=== PATIENT | female | born 1995 | race Caucasian/White ===

== ENCOUNTER 2018-01-15 16:21 | Emergency (ER) | payer BC ==
[~2018-01-15] VITALS: Ht 162.6 cm; Wt 97.5 kg
[2018-01-15 17:38] LABS: BASOPHILS % (AUTO) 0 % (0-10); EOSINOPHILS # (AUTO) 0.2 10^3/uL (0.0-0.3); EOSINOPHILS % (AUTO) 2 % (0-10); HEMATOCRIT 38 % (35-52); HEMOGLOBIN 12.8 G/DL (11.5-16.0); LYMPHOCYTES # (AUTO) 2.3 X 10^3 (1.0-4.0); LYMPHOCYTES % (AUTO) 24 % (12-44); MEAN CORPUSCULAR HEMOGLOBIN 30 PG (25-34); MEAN CORPUSCULAR HGB CONC 34 G/DL (32-36); MEAN CORPUSCULAR VOLUME 88 FL (80-99); MEAN PLATELET VOLUME 9.8 FL (7.4-10.4); MONOCYTES # (AUTO) 0.6 X 10^3 (0.0-1.0); MONOCYTES % (AUTO) 6 % (0-12); NEUTROPHILS # (AUTO) 6.5 X 10^3 (1.8-7.8); NEUTROPHILS % (AUTO) 68 % (42-75); PLATELET COUNT 264 10^3/uL (130-400); RED BLOOD COUNT 4.34 10^6/uL (4.35-5.85); RED CELL DISTRIBUTION WIDTH 12.4 % (10.0-14.5); WHITE BLOOD COUNT 9.5 10^3/uL (4.3-11.0)
[2018-01-15 17:57] LABS: ALANINE AMINOTRANSFERASE 20 U/L (0-55); ALBUMIN 4.3 GM/DL (3.2-4.5); ALKALINE PHOSPHATASE 72 U/L (40-136); BILIRUBIN,TOTAL 0.3 MG/DL (0.1-1.0); BUN/CREATININE RATIO 15; CALCIUM 9.2 MG/DL (8.5-10.1); CARBON DIOXIDE 20 MMOL/L (21-32); CHLORIDE 109 MMOL/L (98-107); CREATININE SERUM 0.65 MG/DL (0.60-1.30); GFR ESTIMATED > 60; GLUCOSE 78 MG/DL (70-105); POTASSIUM 3.6 MMOL/L (3.6-5.0); SODIUM 141 MMOL/L (135-145); TOTAL PROTEIN 7.3 GM/DL (6.4-8.2)
--- NOTE | 2018-01-15 18:09 | ED GU-Female ---
General Chief Complaint: -Female Stated Complaint: ABD PAIN/VAG BLEEDING SINCE 12/20 Nursing Triage Note: ARRIVED VIA AMB TO ROOM 07. PT CRYING ET NERVOUS ET STATES SHE DOES NOT KNOW WHY [facility] SENT HER HERE. PT STATES SHE HAS HAD BLEEDING AND PAIN SINCE Dec. SEEN HER OBGYN IN [place] WHO DID "NOTHING FOR "HER. WENT TO [facility] TODAY HAD A POSITIVE PREG TEST. ET ACCORDING TO THEIR ULTRASOUND SHE HAS A EPTOPIC . Nursing Sepsis Screen: No Definite Risk Source: patient, old records Exam Limitations: no limitations History of Present Illness Date Seen by Provider: Jan 15, 2018 Time Seen by Provider: 16:35 Initial Comments This 22-year-old young lady presents to the emergency room with vaginal bleeding and pelvic pain since December 20. She has been on Clomid for treatment of infertility. She presented to her registered dietitian, Dr. Gonzalez, in [place] on December 21. No workup yet was pursued at that time. Patient presented to the [facility] clinic today as symptoms were worsening. An outpatient ultrasound was pursued which demonstrated a pelvic mass with no contents within the uterus. Findings were concerning for an ectopic . Patient reports a urine test done in the clinic was positive. She has had no fevers. She has had no major symptoms of anemia except she occasionally feels like she needs to catch her breath. Allergies and Home Medications Allergies Coded Allergies: No Known Drug Allergies (Unverified , 01/15/18) Home Medications Hydrocodone Bit/Acetaminophen 1 Tab Tab, 1-2 TAB PO Q6H PRN for PAIN-MODERATE TO SEVERE Prescribed by: ANGELINA SIMS on 01/15/182020 Ondansetron 4 Mg Tab.rapdis, 4 MG SL Q4H PRN for NAUSEA/VOMITING-1ST LINE Prescribed by: ANGELINA SIMS on 01/15/182020 Patient Home Medication List Home Medication List Reviewed: Yes Constitutional: no symptoms reported EENTM: no symptoms reported Respiratory: see HPI Cardiovascular: no symptoms reported Gastrointestinal: no symptoms reported Genitourinary: see HPI : Yes LMP: Dec 20, 2017 Musculoskeletal: no symptoms reported Skin: no symptoms reported Psychiatric/Neurological: No Symptoms Reported Endocrine: No Symptoms Reported Hematologic/Lymphatic: No Symptoms Reported Past Slxyaeb-Lrukvb-Kagxwp Hx Patient Social History Alcohol Use: Denies Use Recreational Drug Use: No Smoking Status: Never a Smoker Recent Foreign Travel: No Contact w/Someone Who Travel: No Recent Infectious Disease Expo: No Recent Hopitalizations: No Surgeries History of Surgeries: Yes (D&C, DENTAL) Respiratory History of Respiratory Disorde: No Cardiovascular History of Cardiac Disorders: No Neurological History of Neurological Disord: No Reproductive System : Yes Last Menstrual Period: Dec 14, 2017 Genitourinary History of Genitourinary Disor: No Gastrointestinal History of Gastrointestinal Di: No Musculoskeletal History of Musculoskeletal Dis: No Endocrine History of Endocrine Disorders: No HEENT History of HEENT Disorders: No Cancer History of Cancer: No Psychosocial History of Psychiatric Problem: No Physical Exam Vital Signs Vital Signs - First Documented 01/15/18 01/15/18 16:25 21:28 Temp 98.1 Pulse 71 Resp 18 B/P (MAP) 122/71 (88) Pulse Ox 100 Capillary Refill : Less Than 3 Seconds General Appearance: WD/WN, mild distress HEENT: normal ENT inspection Neck: normal inspection Cardiovascular: regular rate, rhythm, no edema, no murmur Respiratory: lungs clear, normal breath sounds, no respiratory distress, no accessory muscle use Gastrointestinal: normal bowel sounds, soft, tenderness (suprapubic) Extremities: normal inspection, no pedal edema Neurologic/Psychiatric: sash finisher II-XII nml as tested, no motor/sensory deficits, alert, normal mood/affect, oriented x 3 Skin: normal color, warm/dry Progress/Results/Core Measures Suspected Sepsis Recent Fever Within 48 Hours: No Infection Criteria Present: None New/Unexplained Altered Menta: No Sepsis Screen: No Definite Risk Sepsis Diagnosis: SIRS Temperature:98.1 Pulse: 71 Respiratory Rate: 18 Laboratory Tests 01/15/18 17:31: White Blood Count 9.5 Blood Pressure 122 /71 Mean: 88 Laboratory Tests 01/15/18 17:31: Creatinine 0.65, Platelet Count 264, Total Bilirubin 0.3 Results/Orders Lab Results Laboratory Tests Test 01/15/18 17:31 Range/Units White Blood Count 9.5 4.3-11.0 10^3/uL Red Blood Count 4.34 L 4.35-5.85 10^6/uL Hemoglobin 12.8 11.5-16.0 G/DL Hematocrit 38 35-52 % Mean Corpuscular Volume 88 80-99 FL Mean Corpuscular Hemoglobin 30 25-34 PG Mean Corpuscular Hemoglobin Concent 34 32-36 G/DL Red Cell Distribution Width 12.4 10.0-14.5 % Platelet Count 264 130-400 10^3/uL Mean Platelet Volume 9.8 7.4-10.4 FL Neutrophils (%) (Auto) 68 42-75 % Lymphocytes (%) (Auto) 24 12-44 % Monocytes (%) (Auto) 6 0-12 % Eosinophils (%) (Auto) 2 0-10 % Basophils (%) (Auto) 0 0-10 % Neutrophils # (Auto) 6.5 1.8-7.8 X 10^3 Lymphocytes # (Auto) 2.3 1.0-4.0 X 10^3 Monocytes # (Auto) 0.6 0.0-1.0 X 10^3 Eosinophils # (Auto) 0.2 0.0-0.3 10^3/uL Basophils # (Auto) 0.0 0.0-0.1 10^3/uL Sodium Level 141 135-145 MMOL/L Potassium Level 3.6 3.6-5.0 MMOL/L Chloride Level 109 H 98-107 MMOL/L Carbon Dioxide Level 20 L 21-32 MMOL/L Anion Gap 12 5-14 MMOL/L Blood Urea Nitrogen 10 7-18 MG/DL Creatinine 0.65 0.60-1.30 MG/DL Estimat Glomerular Filtration Rate > 60 BUN/Creatinine Ratio 15 Glucose Level 78 70-105 MG/DL Calcium Level 9.2 8.5-10.1 MG/DL Total Bilirubin 0.3 0.1-1.0 MG/DL Aspartate Amino Transf (AST/SGOT) 20 5-34 U/L Alanine Aminotransferase (ALT/SGPT) 20 0-55 U/L Alkaline Phosphatase 72 40-136 U/L Total Protein 7.3 6.4-8.2 GM/DL Albumin 4.3 3.2-4.5 GM/DL Human Chorionic Gonadotropin, Quant 2418 H <5 MIU/ML My Orders Orders - ANGELINA MUÑOZ MD Cbc With Automated Diff (01/15/18 16:42) Comprehensive Metabolic Panel (01/15/18 16:42) Hcg,Quantitative (01/15/18 16:42) Abo Rh Type (01/15/18 16:42) Rx-Hydrocodone/Apap 5-325 Mg (Rx-Vicodin (01/15/18 20:15) Rx-Ondansetron Po (Rx-Zofran Po) (01/15/18 20:13) Medications Given in ED Current Medications Medications Dose Ordered Sig/Dutch Route Start Time Stop Time Status Last Admin Dose Admin Acetaminophen/ Hydrocodone Bitart 1 ea Q4H PRN PO 01/15/18 20:15 01/15/18 21:30 DC 01/15/18 20:51 1 EA Methotrexate Sodium 100 mg ONCE ONCE IM 01/15/18 20:30 01/15/18 20:31 DC 01/15/18 20:39 100 MG Vital Signs/I&O Vital Sign - Last 12Hours 01/15/18 21:28 Temp 98.1 Pulse 71 Resp 18 B/P (MAP) 113/62 (88) Pulse Ox 100 Capillary Refill : Less Than 3 Seconds Blood Pressure Mean: 88 Progress Note : Progress Note Patient had a low hCG level of 2418. Ultrasound report was reviewed. Patient declined treatment with pain medications. Case was reviewed with Dr. Floyd who believes patient would be a reasonable candidate for methotrexate therapy. Since patient struggles with infertility, it would be best to avoid surgery that may damage are disrupt the uterus, fallopian tubes, or ovaries. Patient agrees with methotrexate therapy and wishes to avoid surgery. Methot[facility]ate was obtained from the [facility] and administered by IM route. There was a prolonged length of stay due to difficulty with procuring the methotrexate from the cancer center. Follow-up was arranged with Dr. Floyd as she wishes to seek further gynecologic care in [place]. Dr. Cuellar would like to see the patient in follow-up on Monday, January 17. Diagnostic Imaging Diagonstic Imaging: Ultrasound Plain Films/CT/US/NM/MRI: pelvis Comments Ultrasound was discussed with Dr. Saldaña and report reviewed. See report below: NAME: ABAD VILLARREAL MED REC#: [id number] PT STATUS: REG CLI : 1995 PHYSICIAN: OTHER, UNLISTED ADMIT DATE: 01/15/18/RAD Draft Date of Exam:01/15/18 US OB<14 WKS SNGLE W/TRANSVAG EXAMINATION: OB ultrasound. INDICATION: Vaginal bleeding, pelvic pain, positive test. FINDINGS: There are no prior studies available for comparison. The uterus is nongravid and not enlarged measuring 7.9 x 3.9 x 4.1 cm. The endometrial lining is minimally thickened measuring 7 mm (normal 5 mm or less). There is no focal mass involving the uterus to suggest a fibroid. On the transaxial images, there is a sizable 7 x 4 cm echogenic area along the posterior aspect of the uterus. This abnormal density is surrounded by a small amount of free fluid. This finding is of uncertain etiology; however, with an empty uterus and a positive test, this mass should be considered secondary to an ectopic until proven otherwise. Correlation with the patient's beta-hCG levels would be recommended. Neither ovary is identified. IMPRESSION: 1. There is no evidence for a gestational sac within the uterus. There does appear to be a sizable 4x 7 cm echogenic density posterior to the uterus. This finding could be related to an ectopic . Recommendations as above. 2. These results will be called to LORNE Lipscomb. CRITICAL FINDINGS Dictated on workstation # [id number] Dict: 01/15/18 1547 Trans: 01/15/18 1802 [facility] [id number] Interpreted by: CLAUDETTE SALDAÑA MD Reviewed: Discussed w/Radiologist Departure Impression Impression: Primary Impression: Ectopic Qualified Codes: O00.90 - Unspecified ectopic without intrauterine Additional Impressions: Pelvic pain Vaginal bleeding Disposition: 01 HOME, SELF-CARE Condition: Improved Departure-Patient Inst. Decision time for Depature: 18:52 Referrals: JOYA STORY MD (PCP/Family) Primary Care Physician CATRACHITA FLOYD DO Patient Instructions: Ectopic Add. Discharge Instructions: Contacted Dr. Floyd's office in the morning for follow-up instructions. You may take hydrocodone as prescribed for pain. You may also use Zofran ( ondansetron) as prescribed for nausea. Start methotrexate as prescribed. This medication may cause increased pain and bleeding temporarily while it takes effect. Return to the emergency room if symptoms become too severe. All discharge instructions reviewed with patient and/or family. Voiced understanding. Scripts Ondansetron (Zofran Odt) 4 Mg Tab.rapdis 4 MG SL Q4H Y for NAUSEA/VOMITING-1ST LINE, #10 TAB Prov: BRUEGGEMANN,ANGELINA T MD 01/15/18 Hydrocodone Bit/Acetaminophen (Hydrocodone/Acetaminophen 5/325mg Tablet) 1 Tab Tab 1-2 TAB PO Q6H Y for PAIN-MODERATE TO SEVERE, #30 TAB Prov: ANGELINA MUÑOZ MD 01/15/18 Work/School Note: Work Release Form Date Seen in the Emergency Department: Jan 15, 2018 Return to Work: Jan 18, 2018 Restrictions: No Restrictions Copy Copies To 1: CATRACHITA FLOYD JOSHUA T MD Jan 15, 2018 18:09
[2018-01-15] MEDS ORDERED: RX-ONDANSETRON 4 MG ODT (ZOFRAN) PPK #4 SL STA (20:13)
[2018-01-15] MEDS ORDERED: RX-HYDROCODONE/APAP 5/325 MG #4 TAB PK PO PRN (20:15)
[2018-01-15] MEDS ORDERED: ACHD5005 PO (20:21)
[2018-01-15] MEDS ORDERED: ONDA4TAB8 SL (20:21)
[2018-01-15] MEDS ORDERED: METHOTREXATE 50 MG/2 ML PF IM ONE (20:30)
[2018-01-15 21:28] VITALS: BP 113/62
== END 2018-01-15 21:30 | disposition home or self-care (01) ==
LOC: EDUNIT# 16:21 → ER 16:22
DX: O00.90 Unspecified ectopic pregnancy without intrauterine pregnancy (principal); Z3A.00 Weeks of gestation of pregnancy not specified
CPT/HCPCS: 36415; 80053; 84702; 85025; 86900; 86901; 96372

== ENCOUNTER → 2018-01-15 | Outpatient (CLI) | payer BC ==
[~2018-01-15] MED LIST: ACHD5005 PO; ONDA4TAB8 SL
--- NOTE | 2018-01-15 18:03 | Diagnostic Imaging Report ---
EXAMINATION: OB ultrasound. INDICATION: Vaginal bleeding, pelvic pain, positive test. FINDINGS: There are no prior studies available for comparison. The uterus is nongravid and not enlarged measuring 7.9 x 3.9 x 4.1 cm. The endometrial lining is minimally thickened measuring 7 mm (normal 5 mm or less). There is no focal mass involving the uterus to suggest a fibroid. On the transaxial images, there is a sizable 7 x 4 cm echogenic area along the posterior aspect of the uterus. This abnormal density is surrounded by a small amount of free fluid. This finding is of uncertain etiology; however, with an empty uterus and a positive test, this mass should be considered secondary to an ectopic until proven otherwise. Correlation with the patient's beta-hCG levels would be recommended. Neither ovary is identified. IMPRESSION: 1. There is no evidence for a gestational sac within the uterus. There does appear to be a sizable 4x 7 cm echogenic density posterior to the uterus. This finding should be considered secondary to an ectopic until proven otherwise. Recommendations as above. 2. These results were called to LORNE Vivar at the time of this dictation. CRITICAL FINDINGS Dictated by: Dictated on workstation # [id number]
== END ==
LOC: RAD 14:56
PROVIDERS: ATTEND Nurse Practitioner Family
DX: O46.91 Antepartum hemorrhage, unspecified, first trimester (principal); O99.89 Other specified diseases and conditions complicating pregnancy, childbirth and the puerperium; Z3A.01 Less than 8 weeks gestation of pregnancy
CPT/HCPCS: 76801; 76817

== ENCOUNTER → 2018-12-09 | Outpatient (CLI) | payer OTHER | LOC: LAB 09:50 | PROVIDERS: ATTEND Obstetrics & Gynecology | DX: N97.0 Female infertility associated with anovulation (principal) | CPT/HCPCS: 36415; 84144 ==

== ENCOUNTER → 2019-01-03 | Outpatient (CLI) | payer OTHER | LOC: LAB 16:24 | PROVIDERS: ATTEND Obstetrics & Gynecology | DX: N97.0 Female infertility associated with anovulation (principal) | CPT/HCPCS: 36415; 82670; 84144 ==

== ENCOUNTER → 2019-01-08 | Outpatient (CLI) | payer OTHER | LOC: LAB 16:51 | PROVIDERS: ATTEND Obstetrics & Gynecology | DX: N97.0 Female infertility associated with anovulation (principal) | CPT/HCPCS: 36415; 82670; 84144 ==

== ENCOUNTER → 2019-01-29 | Outpatient (CLI) | payer OTHER | LOC: LAB 17:12 | PROVIDERS: ATTEND Obstetrics & Gynecology | DX: N97.0 Female infertility associated with anovulation (principal) | CPT/HCPCS: 36415; 82670 ==

== ENCOUNTER → 2019-02-03 | Outpatient (CLI) | payer OTHER | LOC: LAB 10:09 | PROVIDERS: ATTEND Obstetrics & Gynecology | DX: N97.0 Female infertility associated with anovulation (principal) | CPT/HCPCS: 36415; 84144 ==

== ENCOUNTER 2019-03-04 09:05 | Emergency (ER) | payer OTHER ==
[~2019-03-04] VITALS: Ht 162.6 cm; Wt 95.7 kg
--- OUTSIDE RECORDS SUMMARY | 2019-03-04 09:10 | XMS REPORT ---
Author Author ABENA DUTTON Organization [facility] IN [facility] Address [address] [place] [address] Care Team Providers Care Rn Intern Name Role Phone ABENA DUTTON Unavailable PROBLEMS Type Condition ICD9-CM Code NUZ47-OF Code Onset Dates Condition Status SNOMED Code Problem Irregular menstrual bleeding N92.6 Active 26696364 ALLERGIES No Known Allergies ENCOUNTERS Encounter Location Date Diagnosis [facility] [address] [facility] [id number], [place] [address] Jan, Pelvic pain R10.2 ; Irregular menstrual bleeding N92.6 and Less than 8 weeks gestation of Z3A.01 IMMUNIZATIONS No Known Immunizations SOCIAL HISTORY Never Assessed REASON FOR VISIT patient states she is having pelvic pain and bleeding since 12/21/2017 -- yeny juárez, stated OBGYN did a DNC back in april last year for her bleeding and was taking some medicine but now is bleeding again heavy and with cramps PLAN OF CARE Activity Details Follow Up prn Reason:with Dr. Daniels or Dr. Gomes VITAL SIGNS Height 5'4" in 2018-01-15 Weight 215.4 lbs 2018-01-15 Temperature 98.9 degrees Fahrenheit 2018-01-15 BMI 36.97 kg/m2 2018-01-15 Blood pressure systolic 120 mmHg 2018-01-15 Blood pressure diastolic 76 mmHg 2018-01-15 MEDICATIONS No Known Medications RESULTS No Results PROCEDURES Procedure Date Ordered Result Body Site URINE TEST January 15, 2018 URINALYSIS, AUTO, W/O SCOPE January 15, 2018 CHORIONIC GONADOTROPIN TEST January 15, 2018 VENIPUNCT, ROUTINE* January 15, 2018 INSTRUCTIONS MEDICATIONS ADMINISTERED No Known Medications MEDICAL (GENERAL) HISTORY Type Description Date Surgical History DNC 04/2017
[2019-03-04] MEDS ORDERED: LETR2.5T5 (10:23)
[2019-03-04] MEDS ORDERED: ONDANSETRON 4 MG/2 ML (SDV) Z0FRAN IVP ONE (11:15)
[2019-03-04 11:18] LABS: BASOPHILS % (AUTO) 0 % (0-10); EOSINOPHILS # (AUTO) 0.1 10^3/uL (0.0-0.3); EOSINOPHILS % (AUTO) 2 % (0-10); HEMATOCRIT 40 % (35-52); HEMOGLOBIN 13.2 G/DL (11.5-16.0); LYMPHOCYTES # (AUTO) 2.5 X 10^3 (1.0-4.0); LYMPHOCYTES % (AUTO) 32 % (12-44); MEAN CORPUSCULAR HEMOGLOBIN 29 PG (25-34); MEAN CORPUSCULAR HGB CONC 33 G/DL (32-36); MEAN CORPUSCULAR VOLUME 88 FL (80-99); MEAN PLATELET VOLUME 9.8 FL (7.4-10.4); MONOCYTES # (AUTO) 0.5 X 10^3 (0.0-1.0); MONOCYTES % (AUTO) 6 % (0-12); NEUTROPHILS # (AUTO) 4.7 X 10^3 (1.8-7.8); NEUTROPHILS % (AUTO) 60 % (42-75); PLATELET COUNT 244 10^3/uL (130-400); RED CELL DISTRIBUTION WIDTH 12.5 % (10.0-14.5); WHITE BLOOD COUNT 7.9 10^3/uL (4.3-11.0)
[2019-03-04 11:20] LABS: BILIRUBIN,URINE NEGATIVE (NEGATIVE); CLARITY,URINE CLEAR; COLOR,URINE YELLOW; GLUCOSE, URINE (UA) NEGATIVE (NEGATIVE); KETONES,URINE NEGATIVE (NEGATIVE); LEUKOCYTE ESTERASE ,URINE NEGATIVE (NEGATIVE); NITRITE,URINE NEGATIVE (NEGATIVE); PH,URINE 7 (5-9); PROTEIN,URINE NEGATIVE (NEGATIVE); UROBILINOGEN,URINE NORMAL (NORMAL)
--- NOTE | 2019-03-04 11:24 | ED Abdominal Pain ---
General Chief Complaint: Abdominal/GI Problems Stated Complaint: ABD PAIN Nursing Triage Note: PT PRESENTS TO ED WITH COMPLAINTS OF R LOWER ABDOMINAL PAIN SINCE YESTERDAY EVENING. PT REPORTS NAUSEA, INCREASED PAIN WITH ACTIVITY, AND BLOATING. Sepsis Screen: No Definite Risk Source of Information: Patient Exam Limitations: No Limitations History of Present Illness Date Seen by Provider: Mar 04, 2019 Time Seen by Provider: 11:00 Initial Comments 23-year-old female who presents to the emergency room with complaints of right lower quadrant abdominal pain that started last night. She reports that the pain has became increasingly worse throughout the morning. She reports nausea denies constipation, diarrhea, vomiting. She reports that the pain is worse with walking and gets her a sensation that she is bloated. Timing/Duration: 12-24 Hours Severity/Quality: Cramping, Throbbing Location: RLQ Radiation: No Radiation Associated Symptoms: Nausea/Vomiting Allergies and Home Medications Allergies Coded Allergies: No Known Drug Allergies (Unverified , 01/15/18) Patient Home Medication List Home Medication List Reviewed: Yes Review of Systems Review of Systems Constitutional: see HPI; No chills, No fever Gastrointestinal: See HPI, Abdominal Pain, Nausea All Other Systems Reviewed Negative Unless Noted: Yes Past Dchtwsf-Uewbcv-Pumcel Hx Past Med/Social Hx: Reviewed Nursing Past Med/Soc Hx Patient Social History Alcohol Use: Occasionally Uses Recreational Drug Use: No Smoking Status: Never a Smoker 2nd Hand Smoke Exposure: No Recent Foreign Travel: No Contact w/Someone Who Travel: No Recent Infectious Disease Expo: No Recent Hopitalizations: No Physical Abuse: No Sexual Abuse: No Mistreated: No Fear: No Past Medical History Surgeries: Yes (D&C, DENTAL) Respiratory: No Cardiac: No Neurological: No Genitourinary: No Gastrointestinal: No Musculoskeletal: No Endocrine: No HEENT: No Cancer: No Psychosocial: No Integumentary: No Family Medical History Reviewed Nursing Family Hx Physical Exam Vital Signs Vital Signs - First Documented 03/04/19 10:17 Temp 98.6 Pulse 58 Resp 16 B/P (MAP) 132/90 (104) Pulse Ox 100 Capillary Refill : Less Than 3 Seconds Height/Weight/BMI Height: 5'4.00" Weight: 211lbs. oz. 95.096595tz; BMI Method:Stated General Appearance: WD/WN, no apparent distress Respiratory: chest non-tender, lungs clear, normal breath sounds, no respiratory distress, no accessory muscle use Cardiovascular: normal peripheral pulses, regular rate, rhythm, no edema, no gallop, no JVD, no murmur Gastrointestinal: normal bowel sounds, soft, no organomegaly, no pulsatile mass , tenderness (right lower quadrant tenderness) Extremities: normal capillary refill Neurologic/Psychiatric: alert, normal mood/affect, oriented x 3 Skin: normal color, warm/dry Progress/Results/Core Measures Results/Orders Lab Results Laboratory Tests Test 03/04/19 10:14 Range/Units White Blood Count 7.9 4.3-11.0 10^3/uL Red Blood Count 4.55 4.35-5.85 10^6/uL Hemoglobin 13.2 11.5-16.0 G/DL Hematocrit 40 35-52 % Mean Corpuscular Volume 88 80-99 FL Mean Corpuscular Hemoglobin 29 25-34 PG Mean Corpuscular Hemoglobin Concent 33 32-36 G/DL Red Cell Distribution Width 12.5 10.0-14.5 % Platelet Count 244 130-400 10^3/uL Mean Platelet Volume 9.8 7.4-10.4 FL Neutrophils (%) (Auto) 60 42-75 % Lymphocytes (%) (Auto) 32 12-44 % Monocytes (%) (Auto) 6 0-12 % Eosinophils (%) (Auto) 2 0-10 % Basophils (%) (Auto) 0 0-10 % Neutrophils # (Auto) 4.7 1.8-7.8 X 10^3 Lymphocytes # (Auto) 2.5 1.0-4.0 X 10^3 Monocytes # (Auto) 0.5 0.0-1.0 X 10^3 Eosinophils # (Auto) 0.1 0.0-0.3 10^3/uL Basophils # (Auto) 0.0 0.0-0.1 10^3/uL Urine Color YELLOW Urine Clarity CLEAR Urine pH 7 5-9 Urine Specific [place] 1.005 L 1.016-1.022 Urine Protein NEGATIVE NEGATIVE Urine Glucose (UA) NEGATIVE NEGATIVE Urine Ketones NEGATIVE NEGATIVE Urine Nitrite NEGATIVE NEGATIVE Urine Bilirubin NEGATIVE NEGATIVE Urine Urobilinogen NORMAL NORMAL MG/DL Urine Leukocyte Esterase NEGATIVE NEGATIVE Urine RBC (Auto) NEGATIVE NEGATIVE Urine RBC NONE /HPF Urine WBC NONE /HPF Urine Squamous Epithelial Cells 10-25 H /HPF Urine Crystals PRESENT H /LPF Urine Amorphous Sediment RARE ADRIANNA PHOSPHATE H /LPF Urine Bacteria TRACE /HPF Urine Casts NONE /LPF Urine Mucus NEGATIVE /LPF Urine Culture Indicated NO Sodium Level 140 135-145 MMOL/L Potassium Level 3.7 3.6-5.0 MMOL/L Chloride Level 108 H 98-107 MMOL/L Carbon Dioxide Level 23 21-32 MMOL/L Anion Gap 9 5-14 MMOL/L Blood Urea Nitrogen 8 7-18 MG/DL Creatinine 0.67 0.60-1.30 MG/DL Estimat Glomerular Filtration Rate > 60 BUN/Creatinine Ratio 12 Glucose Level 85 70-105 MG/DL Calcium Level 9.3 8.5-10.1 MG/DL Corrected Calcium 9.1 8.5-10.1 MG/DL Total Bilirubin 0.5 0.1-1.0 MG/DL Aspartate Amino Transf (AST/SGOT) 15 5-34 U/L Alanine Aminotransferase (ALT/SGPT) 17 0-55 U/L Alkaline Phosphatase 67 40-136 U/L Total Protein 7.1 6.4-8.2 GM/DL Albumin 4.3 3.2-4.5 GM/DL Amylase Level 25 25-125 U/L Lipase 13 8-78 U/L Serum Test, Qualitative NEGATIVE NEGATIVE My Orders Orders - CHARISSA MENESES Comprehensive Metabolic Panel (03/04/19 11:12) Lipase (03/04/19 11:12) Amylase (03/04/19 11:12) Ua Culture If Indicated (03/04/19 11:12) Hcg,Qualitative Serum (03/04/19 11:12) Ed Iv/Invasive Line Start (03/04/19 11:12) Cbc With Automated Diff (03/04/19 11:12) Ondansetron Injection (Zofran Injectio (03/04/19 11:15) Ct Abd/Pelv W (Appendicitis) (03/04/19 11:45) Iohexol Injection (Omnipaque 350 Mg/Ml 1 (03/04/19 12:15) Received Contrast (Hold Metformin- Contr (03/04/19 12:15) Medications Given in ED Vital Signs/I&O 03/04/19 03/04/19 10:17 13:09 Temp 98.6 98.6 Pulse 58 60 Resp 16 16 B/P (MAP) 132/90 (104) 126/91 (103) Pulse Ox 100 100 Blood Pressure Mean: 104 Diagnostic Imaging Diagonstic Imaging: CT Plain Films/CT/US/NM/MRI: abdomen, pelvis Comments NAME: ABAD VILLARREAL [facility] REC#: [id number] PT STATUS: DEP ER : 1995 PHYSICIAN: CHARISSA MENESES ADMIT DATE: 03/04/19/ER Signed Date of Exam: 03/04/19 CT ABD/PELV W (APPENDICITIS) PROCEDURE: CT abdomen and pelvis with contrast, rule out appendicitis. TECHNIQUE: Multiple contiguous axial images were obtained through the abdomen and pelvis after the administration of intravenous contrast. INDICATION: Right-sided abdominal cramps. COMPARISON: None. FINDINGS: Included portions of the lung bases are clear. CT ABDOMEN: Normal appendix is identified (image 46, series 4). Small bowel loops are nondistended. The kidneys, adrenal glands, spleen, pancreas, and liver have a normal CT appearance. There is no loculated fluid collection or free air within the abdomen. There is a small amount of free fluid within the right lower abdominal quadrant within the paracolic gutter. No abnormal mesenteric or retroperitoneal adenopathy is seen. CT PELVIS: Small amount of free fluid is also noted within the pelvis. There is a probable collapsing right ovarian follicle or cyst that measures 1.9 cm (image 109, series 3). There is no loculated fluid collection or free air. No abnormal lymph nodes are seen. Urinary bladder is unopacified. No calculi are seen within the urinary bladder. Bony structures show no acute abnormalities. IMPRESSION: 1. Small amount of free fluid within the right lower abdominal quadrant and pelvis, which may be physiologic and related to collapsing right ovarian follicle or cyst. 2. Normal appendix. Dictated by: Dictated on workstation # [id number] Dict: 03/04/19 1231 Trans: 03/05/19832 Interpreted by: OXANA CEDILLO MD Electronically signed by: OXANA CEDILLO MD 03/05/19832 Reviewed: Reviewed by Me Departure Impression Primary Impression: Right ovarian cyst Disposition: HOME, SELF-CARE Condition: Stable/Unchanged Departure-Patient Inst. Decision time for Depature: 12:57 Referrals: JOYA STORY MD (PCP) Primary Care Physician CATRACHITA FLOYD DO Patient Instructions: Ovarian Cysts Add. Discharge Instructions: You may use ibuprofen and Tylenol as directed by the bottle for pain relief. Follow-up with Dr. Floyd within 1 week for recheck. Return back to the emergency room for worsening symptoms or concerns as needed. All discharge instructions reviewed with patient and/or family. Voiced understanding. CHARISSA MENESES Mar 04, 2019 11:24
[2019-03-04 11:31] LABS: AMORPHOUS SEDIMENT,UR RARE AMOR PHOSPHATE /LPF; BACTERIA,URINE TRACE /HPF
[2019-03-04 11:40] LABS: ALANINE AMINOTRANSFERASE 17 U/L (0-55); ALBUMIN 4.3 GM/DL (3.2-4.5); ALKALINE PHOSPHATASE 67 U/L (40-136); AMYLASE 25 U/L (25-125); BILIRUBIN,TOTAL 0.5 MG/DL (0.1-1.0); BUN/CREATININE RATIO 12; CALCIUM 9.3 MG/DL (8.5-10.1); CARBON DIOXIDE 23 MMOL/L (21-32); CHLORIDE 108 MMOL/L (98-107); CREATININE SERUM 0.67 MG/DL (0.60-1.30); GFR ESTIMATED > 60; GLUCOSE 85 MG/DL (70-105); LIPASE 13 U/L (8-78); POTASSIUM 3.7 MMOL/L (3.6-5.0); SODIUM 140 MMOL/L (135-145); TOTAL PROTEIN 7.1 GM/DL (6.4-8.2)
[2019-03-04] MEDS ORDERED: IOHEXOL 350 MG/ML 100 ML (OMNIPAQUE 350) VIAL IV ONE (12:15)
[2019-03-04] MEDS ORDERED: HOLD METFORMIN - RECEIVED CONTRAST 20 ML VIAL IV SCH (12:15)
--- NOTE | 2019-03-04 12:40 | Diagnostic Imaging Report ---
PROCEDURE: CT abdomen and pelvis with contrast, rule out appendicitis. TECHNIQUE: Multiple contiguous axial images were obtained through the abdomen and pelvis after the administration of intravenous contrast. INDICATION: Right-sided abdominal cramps. COMPARISON: None. FINDINGS: Included portions of the lung bases are clear. CT ABDOMEN: Normal appendix is identified (image 46, series 4). Small bowel loops are nondistended. The kidneys, adrenal glands, spleen, pancreas, and liver have a normal CT appearance. There is no loculated fluid collection or free air within the abdomen. There is a small amount of free fluid within the right lower abdominal quadrant within the paracolic gutter. No abnormal mesenteric or retroperitoneal adenopathy is seen. CT PELVIS: Small amount of free fluid is also noted within the pelvis. There is a probable collapsing right ovarian follicle or cyst that measures 1.9 cm (image 109, series 3). There is no loculated fluid collection or free air. No abnormal lymph nodes are seen. Urinary bladder is unopacified. No calculi are seen within the urinary bladder. Bony structures show no acute abnormalities. IMPRESSION: 1. Small amount of free fluid within the right lower abdominal quadrant and pelvis, which may be physiologic and related to collapsing right ovarian follicle or cyst. 2. Normal appendix. Dictated by: Dictated on workstation # [id number]
[2019-03-04 13:09] VITALS: BP 126/91
== END 2019-03-04 13:09 | disposition home or self-care (01) ==
LOC: EDUNIT# 09:05 → ER 09:06
DX: N83.201 Unspecified ovarian cyst, right side (principal); Z98.890 Other specified postprocedural states
CPT/HCPCS: 36415; 74177; 80053; 81000; 82150; 83690; 84703; 85025

== ENCOUNTER → 2019-03-06 | Outpatient (CLI) | payer OTHER ==
[~2019-03-06] MED LIST changes: +LETR2.5T5
== END ==
LOC: LAB 15:53
PROVIDERS: ATTEND Obstetrics & Gynecology
DX: N97.0 Female infertility associated with anovulation (principal)
CPT/HCPCS: 36415; 82670

== ENCOUNTER → 2019-03-11 | Outpatient (CLI) | payer OTHER | LOC: LAB 16:11 | PROVIDERS: ATTEND Obstetrics & Gynecology | DX: N97.0 Female infertility associated with anovulation (principal) | CPT/HCPCS: 36415; 82670 ==

== ENCOUNTER → 2019-03-29 | Outpatient (CLI) | payer OTHER | LOC: RAD FS 15:04 | PROVIDERS: ATTEND Obstetrics & Gynecology | DX: N97.0 Female infertility associated with anovulation (principal) | CPT/HCPCS: 36415; 82670 ==

== ENCOUNTER → 2019-04-03 | Outpatient (CLI) | payer OTHER | LOC: LAB FS 15:47 | PROVIDERS: ATTEND Obstetrics & Gynecology | DX: N97.0 Female infertility associated with anovulation (principal) | CPT/HCPCS: 36415; 84144 ==

== ENCOUNTER → 2019-04-24 | Outpatient (CLI) | payer OTHER ==
[~2019-04-24] MED LIST changes: +IOHEXOL 300 MG/ML 50 ML (OMNIPAQUE 300) VIAL IV ONE
--- NOTE | 2019-04-24 18:42 | Diagnostic Imaging Report ---
INDICATION: Prior history of ectopic . The procedure was performed by Dr. Donahue. Omnipaque-300 was injected through the hysterosalpingography catheter which is placed through the endocervical canal into the endometrium. Spot films over the pelvis were obtained. One minute of fluoroscopy was utilized. There is normal filling of the endometrial canal. There is prompt opacification of bilateral fallopian tubes. There appears to be spillage from bilateral fallopian tubes, greater on the right. IMPRESSION: Unremarkable hysterosalpingogram. Dictated by: Dictated on workstation # [id number]
== END ==
LOC: RAD 11:49
PROVIDERS: ATTEND Obstetrics & Gynecology
DX: N83.8 Other noninflammatory disorders of ovary, fallopian tube and broad ligament (principal); Z87.59 Personal history of other complications of pregnancy, childbirth and the puerperium
CPT/HCPCS: 74740

== ENCOUNTER 2020-01-06 14:22 | Emergency (ER) | payer OTHER ==
[~2020-01-06] VITALS: Ht 162.5 cm; Wt 98.4 kg
[~2020-01-06 14:22] MED LIST changes: -IOHEXOL 300 MG/ML 50 ML (OMNIPAQUE 300) VIAL IV ONE; -LETR2.5T5; +LETR2.5T6
--- NOTE | 2020-01-06 14:36 | ED Fall/Injury ---
General Stated Complaint: WC FALL Source: patient Exam Limitations: no limitations History of Present Illness Date Seen by Provider: Jan 06, 2020 Time Seen by Provider: 14:35 Initial Comments Patient slipped on the steps at work and fell landing on her right low back. Walking without difficulty, having some right low back pain. Denies any shortness of air or pain with breathing. Denies any rib, chest or upper back pain. Denies any radiation of pain to her extremities. Patient is , early in her . Denies any abdominal pelvic pain or blunt trauma. Denies any vaginal bleeding. Occurred: just prior to arrival Injuries/Pain Location: back (right low back) Context: slipped Loss of Consciousness: no loss of consciousness Allergies and Home Medications Allergies Coded Allergies: No Known Drug Allergies (Unverified , 01/15/18) Patient Home Medication List Home Medication List Reviewed: Yes Review of Systems Review of Systems Constitutional: no symptoms reported Respiratory: No cough, No short of breath Cardiovascular: No chest pain, No syncope Gastrointestinal: No abdominal pain, No vomiting Genitourinary: No dysuria, No hematuria Musculoskeletal: see HPI, back pain; No joint pain, No neck pain Skin: see HPI; No change in color, No lesions, No lumps, No rash Psychiatric/Neurological: Denies Headache, Denies Numbness, Denies Paresthesia, Denies Seizure, Denies Weakness Past [place] Hx Past Med/Social Hx: Reviewed Nursing Past Med/Soc Hx Patient Social History 2nd Hand Smoke Exposure: No Recent Foreign Travel: No Contact w/Someone Who Travel: No Recent Hopitalizations: No Past Medical History Surgeries: Yes (D&C, DENTAL) Respiratory: No Cardiac: No Neurological: No Genitourinary: No Gastrointestinal: No Musculoskeletal: No Endocrine: No HEENT: No Cancer: No Psychosocial: No Integumentary: No Physical Exam Vital Signs Capillary Refill : Height, Weight, BMI Height: 5'4.00" Weight: 211lbs. oz. 95.762005xc; BMI Method:Stated General Appearance: WD/WN, no apparent distress Neck: non-tender, full range of motion, supple, normal inspection Cardiovascular: regular rate, rhythm, no edema, no JVD Respiratory: chest non-tender, lungs clear, normal breath sounds Gastrointestinal: non tender, soft; No guarding, No rebound, No tenderness Back: normal inspection, no CVA tenderness, no vertebral tenderness, other (TTP (mild) Right lateral low back, soft tissue. non-skeletal. overlying superficial abrasion) Extremities: non-tender, normal inspection, normal capillary refill, pelvis stable; No pedal edema, No swelling Neurologic/Psychiatric: no motor/sensory deficits, alert, normal mood/affect, oriented x 3 Skin: normal color, warm/dry Progress/Results/Core Measures Results/Orders My Orders Orders - SUNITA BARRAZA DO Urinalysis (01/06/20 14:33) Heart Tones (01/06/20 14:34) Departure Impression Primary Impression: Fall down steps Qualified Codes: W10.8XXA - Fall (on) (from) other stairs and steps, initial encounter Additional Impression: Contusion of lower back Qualified Codes: S30.0XXA - Contusion of lower back and pelvis, initial encounter Disposition: 01 HOME, SELF-CARE Condition: Stable Departure-Patient Inst. Decision time for Depature: 14:59 Referrals: NO,LOCAL PHYSICIAN (PCP/Family) Primary Care Physician Patient Instructions: Contusion (DC) SUNITA BARRAZA DO Jan 06, 2020 14:36
--- NOTE | 2020-01-06 14:45 | NUR ---
Attempted to get heart tones. Unable to get anything, but mothers pulse. Pt understood that using a doppler, you might not be able to find heart tones. Physician notified.
[2020-01-06 15:32] LABS: BACTERIA,URINE LARGE /HPF; BILIRUBIN,URINE NEGATIVE (NEGATIVE); CLARITY,URINE SLT CLOUDY; COLOR,URINE YELLOW; GLUCOSE, URINE (UA) NEGATIVE (NEGATIVE); KETONES,URINE NEGATIVE (NEGATIVE); LEUKOCYTE ESTERASE ,URINE NEGATIVE (NEGATIVE); NITRITE,URINE NEGATIVE (NEGATIVE); PROTEIN,URINE NEGATIVE (NEGATIVE)
[2020-01-06 16:04] VITALS: BP 101/62
== END 2020-01-06 16:04 | disposition home or self-care (01) ==
LOC: EDUNIT# 14:22 → ER FS 14:24
DX: O9A.219 Injury, poisoning and certain other consequences of external causes complicating pregnancy, unspecified trimester (principal); S30.0XXA Contusion of lower back and pelvis, initial encounter; Z3A.00 Weeks of gestation of pregnancy not specified; W10.9XXA Fall (on) (from) unspecified stairs and steps, initial encounter; Y92.59 Other trade areas as the place of occurrence of the external cause
CPT/HCPCS: 81000; 87088; 99282

== ENCOUNTER → 2020-02-17 | Outpatient (CLI) | payer OTHER ==
--- NOTE | 2020-02-17 14:04 | Diagnostic Imaging Report ---
INDICATION: patient, survey. TECHNIQUE: Multiple Real-time grayscale images were obtained over the gravid uterus. COMPARISON: None during this . FINDINGS: A single live intrauterine fetus is seen measuring 20 weeks 2 days in size by composite measurements with a sonographic EDC of 07/04/2020. The fetus is in transverse presentation with the head on the maternal left. The placenta is anterior and is marginal. I would recommend a followup later in to determine if this resolves. The heart rate is 152 BPM. The survey showed normal-appearing kidneys, bladder, and stomach as well as intracranial ventricles. The four-chamber heart view and three-vessel cord appear normal. The spine and cord insertion were not well seen. The intracranial structures were not well seen. The maternal adnexa could not be visualized. Biometrical measurements are as follows: Biparietal 4.52 cm, age 19 weeks 5 days. Head circumference 17.02 cm, age 19 weeks 5 days. Abdominal circumference 15.12 cm, age 20 weeks 3 days. Femur length 3.48 cm, age 21 weeks 0 days. Sonographic estimate age: 20 weeks 2 days. Sonographic estimated date of delivery: 07/04/2020. Estimated Weight: 358 gm (+/- 52 gm). LMP percentile: 74%. heart rate: 152 beats per minute. number: 1 of 1. IMPRESSION: Single live intrauterine fetus measuring 20 weeks 2 days in size as described above. The placenta is anterior and appears marginal, recommend followup later in to determine if this resolves. The survey shows no detectable abnormalities with some limitation as above. Consider a limited followup survey as clinically warranted. Dictated by: Dictated on workstation # [id number]
== END ==
LOC: RAD 10:22
PROVIDERS: ATTEND Nurse Practitioner Women's Health
DX: Z36.9 Encounter for antenatal screening, unspecified (principal); Z3A.20 20 weeks gestation of pregnancy
CPT/HCPCS: 76805

== ENCOUNTER → 2020-05-13 | Outpatient (CLI) | payer OTHER ==
--- NOTE | 2020-05-14 09:11 | Diagnostic Imaging Report ---
INDICATION: Follow-up anatomy. TECHNIQUE: Multiple real-time grayscale images were obtained over the gravid uterus. COMPARISON: 02/17/2020. FINDINGS: There is a single live fetus in a cephalic presentation. heart rate was recorded at 156 bpm. Placenta is anterior. The placenta is no longer in a marginal position. The amniotic fluid volume is normal. spine is unremarkable. The cord insertion as well as anatomy are unremarkable on today's study. IMPRESSION: Unremarkable Limited obstetrical ultrasound. A limited anatomy on the study from February is well seen on today's exam. Dictated by: Dictated on workstation # [id number]
== END ==
LOC: RAD 13:07
PROVIDERS: ATTEND Obstetrics & Gynecology
DX: Z34.93 Encounter for supervision of normal pregnancy, unspecified, third trimester (principal); Z3A.28 28 weeks gestation of pregnancy
CPT/HCPCS: 76816

== ENCOUNTER 2020-06-27 08:54 | Outpatient (CLI) | payer OTHER ==
[~2020-06-27] VITALS: Ht 162.6 cm; Wt 109.3 kg
--- NOTE | 2020-06-27 09:00 | NUR ---
ABAD VILLARREAL presented to unit via ambulation from ED, accompanied by s/o, with c/o LEAKING FLUID. ABAD VILLARREAL weighed, gowned, voided, and to bed. EFHM and TOCO applied, VS taken. ABAD VILLARREAL oriented to bed controls, call light, TV, heat, and A/C controls.
--- NOTE | 2020-06-27 09:10 | NUR ---
sve by this RN. 1cm 60% -4 unable to determine presenting part. no leaking or bleeding noted.
[2020-06-27 09:15] VITALS: BP 131/59
--- NOTE | 2020-06-27 09:30 | NUR ---
reactive nst obtained.
--- NOTE | 2020-06-27 09:35 | NUR ---
dr gold notified of nurse findings, assessment, vitals, urine dipstick results. new orders received.
--- NOTE | 2020-06-27 09:40 | NUR ---
out of ws with labor precautions in hand with s/o at side. to home self care , active labor or SROM ruled out. no s/s of distress noted.
--- NOTE | 2020-06-29 08:19 | Physician Query-Final Dx ---
Clinic Account Progress/Dx Physician Query: Please give diagnosis Please include # weeks gestation Date of Service Jun 27, 2020 at 08:54 CARMEN CHO Jun 29, 2020 08:19
== END 2020-06-27 09:40 | disposition home or self-care (01) ==
LOC: LDRP 08:54 → WSo 08:54
PROVIDERS: ATTEND Obstetrics & Gynecology
DX: Z34.90 Encounter for supervision of normal pregnancy, unspecified, unspecified trimester (principal); Z3A.00 Weeks of gestation of pregnancy not specified
CPT/HCPCS: 99214

== ENCOUNTER 2020-06-29 19:26 | Inpatient (IN) | payer OTHER ==
[~2020-06-29] VITALS: Ht 162 cm; Wt 110.5 kg
[2020-06-29] MEDS ORDERED: D5 LR IV SOLUTION 1,000 ML IV ONE (20:01)
[2020-06-29 20:05] VITALS: BP 134/65
[2020-06-29] MEDS: D5 LR IV SOLUTION 1,000 ML IV SCH (20:18)
[2020-06-29 20:32] LABS: BASOPHILS % (AUTO) 0 % (0-10); EOSINOPHILS # (AUTO) 0.1 10^3/uL (0.0-0.3); EOSINOPHILS % (AUTO) 1 % (0-10); HEMATOCRIT 34 % (35-52); HEMOGLOBIN 11.5 G/DL (11.5-16.0); LYMPHOCYTES # (AUTO) 2.7 X 10^3 (1.0-4.0); LYMPHOCYTES % (AUTO) 27 % (12-44); MEAN CORPUSCULAR HEMOGLOBIN 30 PG (25-34); MEAN CORPUSCULAR HGB CONC 34 G/DL (32-36); MEAN CORPUSCULAR VOLUME 88 FL (80-99); MEAN PLATELET VOLUME 9.7 FL (7.4-10.4); MONOCYTES # (AUTO) 0.8 X 10^3 (0.0-1.0); MONOCYTES % (AUTO) 8 % (0-12); NEUTROPHILS # (AUTO) 6.3 X 10^3 (1.8-7.8); NEUTROPHILS % (AUTO) 64 % (42-75); PLATELET COUNT 310 10^3/uL (130-400); RED CELL DISTRIBUTION WIDTH 13.8 % (10.0-14.5); WHITE BLOOD COUNT 9.9 10^3/uL (4.3-11.0)
[2020-06-29 21:13] VITALS: BP 134/65
[2020-06-29] MEDS ORDERED: NS IV 500 ML 500 ML ONE (22:25)
[2020-06-29] MEDS ORDERED: NS IV 500 ML 500 ML IV ONE (22:30)
[2020-06-29 22:40] VITALS: BP 119/62
[2020-06-29] MEDS ORDERED: TERBUTALINE INJ 1 MG/ML (BRETHINE) AMP SC PRN (23:00)
[2020-06-29] MEDS ORDERED: MISOPROSTOL 100 MCG (CYTOTEC) TAB PO ONE (23:00)
[2020-06-29] MEDS ORDERED: MISOPROSTOL 100 MCG (CYTOTEC) TAB ONE (23:04)
[2020-06-30] VITALS (48 sets, daily range): BP systolic 88–159; BP diastolic 47–97
[2020-06-30] MEDS ORDERED: PREN-8 PO (01:20)
[2020-06-30] MEDS ORDERED: MISOPROSTOL 100 MCG (CYTOTEC) TAB PO SCH (03:00)
[2020-06-30] MEDS: D5 LR IV SOLUTION 1,000 ML IV SCH ×2 (03:44→10:58)
[2020-06-30] MEDS ORDERED: OXYTOCIN PRE-MIX DRIP 500 ML IV SCH ×2 (06:51→17:03)
--- NOTE | 2020-06-30 07:10 | NUR ---
Report received from Meaghan AYALA at this time.
--- NOTE | 2020-06-30 07:42 | History & Physical-OB/GYN ---
TELLY ACUNA [facility] 06/30/20 7:42am: OB - Chief Complaint & HPI Date/Time Date of Admission: Date of Admission: Jun 29, 2020 at 19:26 Date seen by a Provider: Jun 30, 2020 Time Seen by a Provider: 07:30 Chief Complaint/History OB-Reason for Admission/Chief: Induction of Labor Hx : 2 Hx Para: 0 Hx Last Menstrual Period: September 2019 Expected Date of Delivery: Jul 06, 2020 Gestational Age in Weeks: 39 Allergies and Home Medications Allergies Coded Allergies: No Known Drug Allergies (Unverified , 01/15/18) Patient Home Medication List Home Medication List Reviewed: Yes OB - History Hx of Present Care: Yes Ultrasounds: Abnormal US findings (Placenta previa at 20 wks, improved at 32wks) Obstetrical Complications: Hyperemesis (Until 19wks, she did not take any medicaitons for it) Medical Complications: None Obstetrical History Hx Ectopic : Yes Delivery History Adverse Rxn to Tranfusion: No Patient Past Medical History N/A Social History/Family History Recent Infectious Disease Expo: No Alcohol Use: Denies Use Recreational Drug Use: No 2nd Hand Smoke Exposure: No OB - Admission Exam Physical Exam Vitals: Vital Signs 06/29/20 06/30/20 06/30/20 21:13 05:50 06:50 Temp 36.6 Pulse 69 Resp 18 B/P (MAP) 140/78 (98) Pulse Ox 98 O2 Delivery Room Air HEENT: Eyes non-injected Heart: Rhythm Normal Lungs: Clear Abdomen: Gravid Extremities: Normal Heart Rate: 140's Accelerations: Accelerations Present Decelerations: No Decelerations Short Term Variability: Present Director Of Radio Services Variability: Average (6-25) Contractions on Admission: >10 Minutes Apart Intensity: Moderate Labs Laboratory Tests Test 06/29/20 20:10 Range/Units White Blood Count 9.9 4.3-11.0 10^3/uL Red Blood Count 3.89 L 4.35-5.85 10^6/uL Hemoglobin 11.5 11.5-16.0 G/DL Hematocrit 34 L 35-52 % Mean Corpuscular Volume 88 80-99 FL Mean Corpuscular Hemoglobin 30 25-34 PG Mean Corpuscular Hemoglobin Concent 34 32-36 G/DL Red Cell Distribution Width 13.8 10.0-14.5 % Platelet Count 310 130-400 10^3/uL Mean Platelet Volume 9.7 7.4-10.4 FL Neutrophils (%) (Auto) 64 42-75 % Lymphocytes (%) (Auto) 27 12-44 % Monocytes (%) (Auto) 8 0-12 % Eosinophils (%) (Auto) 1 0-10 % Basophils (%) (Auto) 0 0-10 % Neutrophils # (Auto) 6.3 1.8-7.8 X 10^3 Lymphocytes # (Auto) 2.7 1.0-4.0 X 10^3 Monocytes # (Auto) 0.8 0.0-1.0 X 10^3 Eosinophils # (Auto) 0.1 0.0-0.3 10^3/uL Basophils # (Auto) 0.0 0.0-0.1 10^3/uL OB - Assessment/Plan/Diagnosis Assessment Assessment: induction of labor Admission Dx Induction of labor Plan Plan: Induction Supervisory-Addendum Brief Verification & Attestation Participated in pt care: history Personally performed: exam, history Care discussed with: Medical Student, other (Doctor) Procedures: n/a Medical student performed history and physical prior to physicians arrival. Findings were then discussed with physician. RYANPAN Mando DO 06/30/20 8:28am: OB - Chief Complaint & HPI Date/Time Date of Admission: 06/29/20 Chief Complaint/History OB-Reason for Admission/Chief: Induction of Labor Gestational Age in Days: 1 Admission Nurse Assessment Rev: Yes Allergies and Home Medications Allergies Coded Allergies: No Known Drug Allergies (Unverified , 01/15/18) Patient Home Medication List Home Medication List Reviewed: Yes OB - History Hx of Present Care: Yes Ultrasounds: Normal mid trimester US Obstetrical Complications: None Medical Complications: None OB - Admission Exam Physical Exam HEENT: NCAT Heart: Rhythm Normal Lungs: Clear Abdomen: Gravid Extremities: Normal Reflexes: Normal Cervical Dilatation: 1cm Effacement: 75% Station: -1 Membranes: Intact Accelerations: Accelerations Present Decelerations: No Decelerations Short Term Variability: Present Usp Variability: Average (6-25) Contractions on Admission: 6-10 Minutes Apart Intensity: Mild Huynh Scoring Tool (Modified) Dilation (cm): 1-2cm (1) Effacement (%): 51-79% (2) Descent/Station: -1,0 (2) Cervix Consistency: Soft (2) Cervix Position: Middle/Mid-Position (1) Huynh Score: 8 OB - Assessment/Plan/Diagnosis Assessment Assessment: induction of labor Admission Dx 24 yo @ 39 weeks Elective induction of labor Admission Status: Inpatient Order (span 2 midnights) Reason for Inpatient Admission: Induction of labor Plan Plan: Induction Induction Method: per Misoprostol Protocol Supervisory-Addendum Brief Verification & Attestation Results interpretation: Verified all documentation Verification and Attestation of Medical Student E/M Service A medical student performed and documented this service in my presence. I reviewed and verified all information documented by the medical student and made modifications to such information, when appropriate. I personally performed the physical exam and medical decision making. Pan Davis, Jun 30, 2020,08:43 [facility] AC[facility] Jun 30, 2020 7:42 am PAN DAVIS DO Jun 30, 2020 8:28 am
[2020-06-30] MEDS ORDERED: fentaNYL 2 mcg/ml BUPIVA 0.125 100 ML ONE (10:49)
[2020-06-30] MEDS ORDERED: BUPIVACAINE 0.25% 30 ML (SENSORCAINE) VIAL ONE (11:14)
[2020-06-30] MEDS ORDERED: fentaNYL INJECTION 100 MCG/2 ML AMP ONE (11:14)
[2020-06-30] MEDS ORDERED: LIDOCAINE PF 2% 5 ML (XYLOCAINE) VIAL ONE (11:14)
[2020-06-30] MEDS ORDERED: LACTATED RINGERS 1,000 ML IV ONE ×2 (11:46)
[2020-06-30] MEDS ORDERED: EPIDURAL (fentaNYL 2 MCG/ML BUPIVA 0.125%)100 ML BAG EPI PRN (12:00)
[2020-06-30] MEDS ORDERED: fentaNYL INJECTION 100 MCG/2 ML AMP INJ ONE (12:00)
[2020-06-30] MEDS ORDERED: NALOXONE 0.4 MG/ML 1 ML (NARCAN) VIAL IV PRN (12:00)
[2020-06-30] MEDS ORDERED: ONDANSETRON 4 MG/2 ML (SDV) Z0FRAN IV PRN (12:00)
--- NOTE | 2020-06-30 12:48 | NUR ---
Dr Webb updated on pt status at this time. Pt has gotten epidural and is now comfortable. Variables with every UC after epidural, BP within normal limits, asymptomatic. SVE 7cm. only tolerating sitting straight up at this time. No new orders received. Dr Webb plans to come see pt around 1300.
[2020-06-30] MEDS ORDERED: LIDOCAINE/EPI 2% 1:200,00 (XYLOCAINE) 10 ML VIAL ONE (13:16)
--- NOTE | 2020-06-30 13:42 | NUR ---
Dr webb updated on pt status. Pt CO pressure, 9.5 cm. Tried to practice push and was unable to reduce ant lip with push. Will continue to labor down. No new orders at this time. Dr Webb states he will try to see a couple more patients in the office and be over shortly unless needed sooner for delivery.
--- NOTE | 2020-06-30 14:19 | NUR ---
RN updated Dr Webb: Pt complete. RN Practice pushed with pt; not pushing well.
--- NOTE | 2020-06-30 14:52 | NUR ---
Pt CO pain with each Uc now and feeling more pressure. RN has not rechecked pt. states he will be here in about 5 minutes. No new orders.
[2020-06-30] MEDS ORDERED: LIDOCAINE/EPI 2% 1:200,00 (XYLOCAINE) 10 ML VIAL INJ ONE (15:30)
--- NOTE | 2020-06-30 17:09 | OB Labor & Delivery Record ---
L&D History Date of Service Date of Service: Jun 30, 2020 History Expected Date of Delivery: Jul 06, 2020 Gestational Age in Weeks: 39 Hx : 2 Hx Para: 0 Complications Events: Routine care Operative Indications (Cesarea: N/A-Vaginal Delivery Intrapartal Events: None L&D Stage1 Stage One Onset of Labor - Date: Jun 30, 2020 Monitors and Tracing Monitor Mode: External Heart Rate: 135 Monitor Accelerations: Uniform Station: -2 Investment Associate Variability: Average (6-10) Short Term Variability: Present Presentation: Vertex Vital Signs VS - Last 72 Hours, by Label 06/29/20 06/29/20 06/29/20 06/30/20 20:05 21:13 22:40 00:00 Temp 36.6 36.8 Pulse 106 106 78 72 Resp 18 18 18 18 B/P (MAP) 134/65 (88) 119/62 (81) 116/55 (75) Pulse Ox 98 O2 Delivery Room Air Room Air Room Air 06/30/20 06/30/20 06/30/20 06/30/20 00:25 01:50 02:50 03:50 Temp 36.5 Pulse 67 74 73 60 Resp 18 18 18 18 B/P (MAP) 88/47 (61) 105/51 (69) 120/76 (91) 130/62 (84) O2 Delivery Room Air Room Air Room Air Room Air 06/30/20 06/30/20 06/30/20 06/30/20 04:50 05:50 06:50 07:30 Temp 36.6 36.1 Pulse 56 68 69 72 Resp 18 18 18 16 B/P (MAP) 127/62 (83) 113/57 (75) 140/78 (98) 128/69 (88) Pulse Ox 99 O2 Delivery Room Air Room Air Room Air Room Air 06/30/20 06/30/20 06/30/20 06/30/20 07:45 08:00 08:15 08:30 Pulse 62 58 B/P (MAP) 128/60 (82) 120/70 (87) O2 Delivery Room Air Room Air Room Air Room Air 06/30/20 06/30/20 06/30/20 06/30/20 08:45 09:00 09:15 09:30 Temp 36.1 Pulse 68 75 71 Resp 18 B/P (MAP) 135/66 (89) 139/65 (89) 146/67 (93) O2 Delivery Room Air Room Air Room Air Room Air 06/30/20 06/30/20 06/30/20 06/30/20 09:45 10:00 10:15 10:30 Pulse 62 60 71 69 B/P (MAP) 127/75 (92) 134/80 (98) 141/84 (103) 141/97 (112) O2 Delivery Room Air Room Air Room Air Room Air 06/30/20 06/30/20 06/30/20 06/30/20 10:45 11:00 11:15 11:30 Pulse 66 61 71 B/P (MAP) 159/74 (102) 141/93 (109) 151/87 (108) O2 Delivery Room Air Room Air Room Air Room Air Rupture of Membranes Spontaneous Ruture of Membrane: Yes Amniotic Membrane Rupture Time: 0809 Vaginal Bleeding Description: Normal Show Induction/Anesthesia Epidural Cath Placement - Time: 112 Progress/Notes Patient admitted for IOL. Started on oral cytotec overnight, Pitocin augmentation in the AM, and AROM performed. She progressed with epidural analgesia to complete and + 2 L&D Stage2 Stage Two Stage II Date: Jun 30, 2020 Monitors and Tracing Monitor Mode: External Heart Rate: 135 Monitor Accelerations: Uniform Investment Associate Variability: Average (6-10) Short Term Variability: Present Position: Right Occiput Anterior Presentation: Vertex Cord Descript/Complications Cord Vessel Description: 3 Vessels Delivery Type Delivery Method: Spontaneous Vaginal Anterior Shoulder: Left Episiotomy/Perineal Laceration Laceraction(s)/Extensions: Yes Episiotomy Description: Perineal Extension/lac, 2nd degree Degree (describe repair) 2nd degree perineal and bilateral periurethral lacerations repaired using 3-0 rapide and 2-0 vicryl suture. Condition of Delivery 1 minute Comment: 8 5 minute Comment: 9 Notes Live female [id number] 13 oz Condition of Condition of : Living Exam: No Observed Abnormalities Resuscitation Resuscitation: N/A - Spontaneous Resp L&D Stage3 Stage Three Stage III Date: Jun 30, 2020 Pictocin Pitocin Administration mu/min: 6 Pitocin ml/hr: 6 Pitocin Administration Comment: 30 mu wide open at delivery of placenta Placenta Delivery Placenta Delivery: Spontaneous Delivery Summary Summary Estimated blood loss (mL): 350 Attending at delivery: Srinivasan Davis DO Condition of Delivery Examined: Cervix Examined, Uterus Explored Post Hemorrhage: No Condition of Mother stable Condition of Infant (s) stable SRINIVASAN DAVIS DO Jun 30, 2020 5:09 pm
[2020-06-30] MEDS ORDERED: MEASLES,MUMPS,RUBELLA 1 EA INJ SQ ONE (17:15)
[2020-06-30] MEDS ORDERED: TETANUS,DIPTH,PERTUSS P/F (BOOSTRIX) 0.5 ML VIAL IM ONE (17:15)
[2020-06-30] MEDS ORDERED: WITCH HAZEL(TUCKS) 40 EA JAR TOP PRN (17:15)
[2020-06-30] MEDS ORDERED: HYDROcodone/APAP 5 MG/325 MG (LORTAB) TAB PO PRN (17:15)
[2020-06-30] MEDS ORDERED: BENZOCAINE/MENTHOL (DERMOPLAST) 60 ML CAN TP PRN (17:15)
[2020-06-30] MEDS ORDERED: DIBUCAINE (NUPERCAINAL) 1% OINT 30 GM TOP PRN (17:15)
--- NOTE | 2020-06-30 17:40 | NUR ---
report received from erum dewitt rn
--- NOTE | 2020-06-30 17:50 | NUR ---
1600: Recovery period begins at this time. Fundus firm, midline, level with umbilicus, scant bleeding. VSS. Pt holding skin to skin. Denies needs at this time. at bedside. Call light within reach. This RN in/out of room frequently. 1615: Fundus firm, midline, level with umbilicus, scant bleeding. VSS. Pt infant at this time, RN assists. Denies needs at this time. at bedside. Call light within reach. This RN in/out of room frequently. 1630:Fundus firm, midline, level with umbilicus, light bleeding. VSS. Pt infant at this time. Ceci RN at bedside for education. Denies needs at this time. at bedside. Call light within reach. This RN in/out of room frequently. 1645:Fundus firm, midline, level with umbilicus, light bleeding. VSS. Pt at this time. Denies needs at this time. at bedside. Call light within reach. This RN in/out of room frequently. 1700: Fundus firm, midline, level with umbilicus, light-moderate bleeding. VSS. Peripad and linens changed, pericare by this RN. Epidural catheter DC'd, catheter intact. FOB holding infant at bedside. Denies needs at this time. at bedside. Call light within reach. This RN in/out of room frequently. 1715: Fundus firm, midline, level with umbilicus, light bleeding. VSS. Denies needs at this time. at bedside . Call light within reach. Pt eating at this time. 1750: Pt report given to Lu AYALA at this time.
[2020-06-30] MEDS: IBUPROFEN 600 MG (MOTRIN) TAB PO SCH (17:53)
--- NOTE | 2020-06-30 18:00 | NUR ---
Assisted up to void. +void, pericare and pad changed.
--- NOTE | 2020-06-30 18:05 | NUR ---
Assisted to wheelchair and transferred to room 309. Assisted to bed. call light with in reach and oriented to room, call light and surroundings.
[2020-06-30] MEDS: DOCUSATE SODIUM 100 MG (COLACE) CAP PO SCH (20:08)
[2020-06-30] MEDS ORDERED: CATHETER FLUSH 10 ML SYR IV SCH (22:00)
[2020-07-01 00:05] VITALS: BP 95/59
[2020-07-01] MEDS: IBUPROFEN 600 MG (MOTRIN) TAB PO SCH ×3 (00:06→12:19)
[2020-07-01 04:20] VITALS: BP 111/62
[2020-07-01 05:04] LABS: BASOPHILS % (AUTO) 0 % (0-10); EOSINOPHILS # (AUTO) 0.2 10^3/uL (0.0-0.3); EOSINOPHILS % (AUTO) 2 % (0-10); HEMATOCRIT 29 % (35-52); HEMOGLOBIN 9.6 G/DL (11.5-16.0); LYMPHOCYTES # (AUTO) 3.3 X 10^3 (1.0-4.0); LYMPHOCYTES % (AUTO) 25 % (12-44); MEAN CORPUSCULAR HEMOGLOBIN 29 PG (25-34); MEAN CORPUSCULAR HGB CONC 33 G/DL (32-36); MEAN CORPUSCULAR VOLUME 88 FL (80-99); MEAN PLATELET VOLUME 9.6 FL (7.4-10.4); MONOCYTES % (AUTO) 8 % (0-12); NEUTROPHILS # (AUTO) 8.7 X 10^3 (1.8-7.8); NEUTROPHILS % (AUTO) 66 % (42-75); PLATELET COUNT 234 10^3/uL (130-400); RED CELL DISTRIBUTION WIDTH 13.4 % (10.0-14.5); WHITE BLOOD COUNT 13.1 10^3/uL (4.3-11.0)
[2020-07-01] MEDS ORDERED: PRENATAL VITAMIN 1 EA TAB PO SCH (07:00)
[2020-07-01 07:21] VITALS: BP 125/59
--- NOTE | 2020-07-01 07:29 | Anesthesia-Regional Post-Op ---
Regional Patient Condition Mental Status: Alert, Oriented x3 Circulation: Same as Pre-Op Headache: Absent Sensation: Full Recovery Motor Block: Absent Post Op Complications Complications None Follow Up Care/Instructions Patient Instructions None needed. Anesthesia/Patient Condition Patient is doing well, no complaints, stable vital signs, no apparent adverse anesthesia problems. No complications reported per nursing. RO LOVE CRNA Jul 01, 2020 07:29
[2020-07-01] MEDS: DOCUSATE SODIUM 100 MG (COLACE) CAP PO SCH (07:54)
--- NOTE | 2020-07-01 08:02 | Postpartum Progress Note ---
Note Note Day # 1 Subjective: Patient is without complaints. Ambulating, voiding. Tolerating a regular diet without nausea or vomiting. Normal lochia. Pain is well controlled with oral pain medications. Objective: Physical Exam: General - Alert and oriented, no apparent distress Abdomen - Soft, appropriately tender to palpation, non-distended, fundus firm at umbilicus Extremities - no edema, negative Kelsie's bilaterally Assessment: PPD 1 NVSD Acute blood loss anemia Plan: Routine care. Encourage breast feeding. Encourage ambulation. Ferrous sulfate supplementation. Plan for discharge today Vitals - Labs Vital Signs - I&O Vital Signs Date Time Temp Pulse Resp B/P (MAP) Pulse Ox O2 Delivery O2 Flow Rate FiO2 07/01/20 07:21 36.7 69 18 125/59 (81) 98 Room Air 07/01/20 04:20 36.5 60 16 111/62 (78) 100 Room Air 07/01/20 00:05 36.5 73 16 95/59 (71) 99 Room Air 06/30/20 20:06 37.0 81 16 124/64 (84) 99 Room Air 06/30/20 17:51 36.6 80 18 145/63 (90) Room Air 06/30/20 17:07 68 16 129/59 (82) Room Air 06/30/20 16:54 71 131/57 (81) Room Air 06/30/20 16:30 86 137/60 (85) Room Air 06/30/20 16:15 74 132/67 (88) Room Air 06/30/20 16:00 36.6 94 16 136/67 (90) Room Air 06/30/20 15:30 Room Air 06/30/20 15:15 69 144/63 (90) Room Air 06/30/20 15:00 65 128/60 (82) Room Air 06/30/20 14:45 68 138/63 (88) Room Air 06/30/20 14:30 70 136/60 (85) Room Air 06/30/20 14:15 71 18 135/62 (86) Room Air 06/30/20 14:00 Room Air 06/30/20 13:45 Room Air 06/30/20 13:45 Room Air 06/30/20 13:30 Room Air 06/30/20 13:30 Room Air 06/30/20 13:15 Room Air 06/30/20 13:00 36.0 69 146/78 (100) Room Air 06/30/20 12:45 Room Air 06/30/20 12:30 68 133/63 (86) Room Air 06/30/20 12:25 67 128/66 (86) Room Air 06/30/20 12:20 61 124/68 (86) Room Air 06/30/20 12:15 94 135/63 (87) Room Air 06/30/20 12:10 94 135/63 (87) Room Air 06/30/20 12:05 92 133/62 (85) Room Air 06/30/20 12:00 78 134/67 (89) Room Air 06/30/20 11:55 71 155/71 (99) Room Air 06/30/20 11:53 76 144/63 (90) Room Air 06/30/20 11:50 71 136/92 (107) Room Air 06/30/20 11:48 81 157/78 (104) Room Air 06/30/20 11:45 36.0 85 16 152/81 (104) Room Air 06/30/20 11:40 74 137/70 (92) Room Air 06/30/20 11:30 71 151/87 (108) Room Air 06/30/20 11:15 61 141/93 (109) Room Air 06/30/20 11:00 Room Air 06/30/20 10:45 66 159/74 (102) Room Air 06/30/20 10:30 69 141/97 (112) Room Air 06/30/20 10:15 71 141/84 (103) Room Air 06/30/20 10:00 60 134/80 (98) Room Air 06/30/20 09:45 62 127/75 (92) Room Air 06/30/20 09:30 Room Air 06/30/20 09:15 36.1 71 18 146/67 (93) Room Air 06/30/20 09:00 75 139/65 (89) Room Air 06/30/20 08:45 68 135/66 (89) Room Air 06/30/20 08:30 58 120/70 (87) Room Air 06/30/20 08:15 Room Air I & O 07/01/20 07:00 Intake Total 3600 ml Balance 3600 ml Labs Laboratory Tests 07/01/20 04:50: White Blood Count 13.1H, Red Blood Count 3.27L, Hemoglobin 9.6L, Hematocrit 29L, Mean Corpuscular Volume 88, Mean Corpuscular Hemoglobin 29, Mean Corpuscular Hemoglobin Concent 33, Red Cell Distribution Width 13.4, Platelet Count 234, Mean Platelet Volume 9.6, Neutrophils (%) (Auto) 66, Lymphocytes (%) (Auto) 25, Monocytes (%) (Auto) 8, Eosinophils (%) (Auto) 2, Basophils (%) (Auto) 0, Neutrophils # (Auto) 8.7H, Lymphocytes # (Auto) 3.3, Monocytes # (Auto) 1.0, Eosinophils # (Auto) 0.2, Basophils # (Auto) 0.0 SRINIVASAN DAVIS DO Jul 01, 2020 08:02
[2020-07-01] MEDS ORDERED: IBUP-844 PO (08:04)
[2020-07-01] MEDS ORDERED: DCS100C PO (08:04)
[2020-07-01] MEDS ORDERED: DIBU30OI TOP (08:04)
[2020-07-01] MEDS ORDERED: BENZ78AE2 TP (08:04)
[2020-07-01] MEDS ORDERED: HYDR-3812 PO (08:04)
--- NOTE | 2020-07-01 08:05 | Discharge Inst-Women's Service ---
Discharge Inst-Women's Serv Depart Medication/Instructions New, Converted or Re-Newed RX: RX on Chart Final Diagnosis PPD 1 NVD Problems Reviewed?: Yes Consults/Follow Up Additional Follow Up: Yes Orders/Referrals Dr. Davis or Godfrey in 6 weeks Activity Activity: Activity as Tolerated Driving Instructions: No Driving for 1 Week NO SMOKING: NO SMOKING Nothing Inside Vagina: No Douching, No [place], No Tampons Diet Discharge Diet: No Restrictions Symptoms to Report to : Bleeding Excessive, Pain Increased, Fever Over 101 Degrees F, Vaginal Bleeding Increase, Questions/Concerns For Any Problems or Questions: Contact Your Physician SRINIVASAN DAVIS DO Jul 01, 2020 08:05
[2020-07-01 14:30] VITALS: BP 121/55
--- NOTE | 2020-07-01 17:20 | NUR ---
Discharge instructions explained, signed. questions answered. prescriptions given.
[2020-07-01 18:00] VITALS: BP 121/55
--- NOTE | 2020-07-01 18:00 | NUR ---
Discharged to home. Ambulates self downstairs to private vehicle with belongings in hand. Accompanied by staff and .
== END 2020-07-01 18:00 | disposition home or self-care (01) | DRG 806 ==
LOC: LDRP 19:26
PROVIDERS: ADMIT Obstetrics & Gynecology; ATTEND Obstetrics & Gynecology
PROC: 10E0XZZ Delivery of Products of Conception, External Approach (ICD-10-PCS; principal; 2020-06-29)
PROC: 0KQM0ZZ Repair Perineum Muscle, Open Approach (ICD-10-PCS; 2020-06-29)
PROC: 10907ZC Drainage of Amniotic Fluid, Therapeutic from Products of Conception, Via Natural or Artificial Opening (ICD-10-PCS; 2020-06-29)
PROC: 0UQMXZZ Repair Vulva, External Approach (ICD-10-PCS; 2020-06-29)
DX: O70.1 Second degree perineal laceration during delivery (principal); D62 Acute posthemorrhagic anemia; Z37.0 Single live birth; O71.82 Other specified trauma to perineum and vulva; Z3A.39 39 weeks gestation of pregnancy; O99.03 Anemia complicating the puerperium
CPT/HCPCS: 36415; 85025; 86703; 86850; 86900; 86901; 87340

== ENCOUNTER → 2020-09-07 | Outpatient (CLI) | payer OTHER ==
[~2020-09-07] MED LIST changes: +BENZ78AE5 TP; +DCS100C PO; +DIBU30OI TOP; +IBUP-844 PO; +PREN-8 PO
--- NOTE | 2020-09-07 15:03 | Diagnostic Imaging Report ---
PROCEDURE: US Non-ob pelvis comp/trans. TECHNIQUE: Multiple realtime grayscale images were obtained of the pelvis in various projections endovaginally. Transabdominal imaging was also performed. INDICATION: Pelvic pain and dyspareunia. FINDINGS: Uterus measures 7.0 x 3.9 x 6.1 cm. Uterus is anteverted. Endometrium is 4 mm in thickness. IUD appears to be somewhat low in position near the lower uterine segment. No myometrial mass is detected. Right ovary measures 2.5 x 1.4 x 2.7 cm and the left ovary measures 2.8 x 1.2 x 1.9 cm. Ovaries contain small follicles. There is blood flow to both ovaries. No adnexal mass or free fluid is detected. IMPRESSION: Unremarkable pelvic ultrasound apart from IUD being somewhat low in position in the region of the lower uterine segment. Dictated by: Dictated on workstation # [id number]
== END ==
LOC: RAD 15:00
PROVIDERS: ATTEND Nurse Practitioner Women's Health
DX: N94.10 Unspecified dyspareunia (principal); Z97.5 Presence of (intrauterine) contraceptive device
CPT/HCPCS: 76830; 76856

== ENCOUNTER → 2021-05-21 | Outpatient (CLI) | payer BC | LOC: LAB FS 13:00 | PROVIDERS: ATTEND Obstetrics & Gynecology | DX: Z32.01 Encounter for pregnancy test, result positive (principal) | CPT/HCPCS: 36415; 84702 ==

== ENCOUNTER → 2021-05-24 | Outpatient (CLI) | payer BC | LOC: LAB FS 09:36 | PROVIDERS: ATTEND Obstetrics & Gynecology | DX: Z36.89 Encounter for other specified antenatal screening (principal) | CPT/HCPCS: 36415; 84702 ==

== ENCOUNTER → 2021-09-02 | Outpatient (CLI) | payer BC ==
[~2021-09-02] MED LIST changes: -DCS100C PO; +DOCU-239 PO
--- NOTE | 2021-09-02 11:55 | Diagnostic Imaging Report ---
INDICATION: anatomy survey TECHNIQUE: Multiple real-time grayscale images were obtained over the gravid uterus. COMPARISON: None available for this FINDINGS: Single live intrauterine is in cephalic presentation. The placenta is posteriorly located with its tip approximately 2 cm from the internal cervical os, which is borderline low lying. No previous present. heart rate is detected. The amount of amniotic fluid appears visually appropriate. anatomy survey is performed and the following structures are visualized and normal: Four-chamber heart, cerebral ventricles, cerebellum, cisterna magna, kidneys, spine and stomach. The urinary bladder, umbilical cord insertion and umbilical cord are poorly evaluated due to position and maternal body habitus. Biometrical measurements are as follows: Biparietal 4.55 cm, age 19 weeks 6 days. Head circumference 16.77 cm, age 19 weeks 4 days. Abdominal circumference 14.88 cm, age 20 weeks 1 days. Femur length 3.43 cm, age 20 weeks 6 days. Sonographic estimate age: 20 weeks 1 days. Sonographic estimated date of delivery: 01/19/2022. Estimated Weight: 346 gm (+/- 51 gm). LMP percentile: 98%. heart rate: 150 beats per minute. number: 1 of 1. IMPRESSION: 1. Single live intrauterine has no anatomy anomaly within the visualized portions. The umbilical cord and urinary bladder are poorly evaluated due to positioning. Consider attention on follow-up. Dictated by: Dictated on workstation # [id number]
== END ==
LOC: RAD FS 09:28
PROVIDERS: ATTEND Nurse Practitioner Women's Health
DX: Z34.02 Encounter for supervision of normal first pregnancy, second trimester (principal); Z3A.00 Weeks of gestation of pregnancy not specified
CPT/HCPCS: 76805

== ENCOUNTER 2022-01-03 17:30 | Outpatient (CLI) | payer BC, OTHER ==
[~2022-01-03] VITALS: Ht 152.4 cm; Wt 122.9 kg
[2022-01-03 17:52] VITALS: BP 137/80
[2022-01-03 17:55] VITALS: BP 137/80
[2022-01-03 18:03] LABS: BILIRUBIN,URINE NEGATIVE (NEGATIVE); CLARITY,URINE CLEAR; COLOR,URINE YELLOW; GLUCOSE, URINE (UA) TRACE (NEGATIVE); KETONES,URINE NEGATIVE (NEGATIVE); LEUKOCYTE ESTERASE ,URINE 1+ (NEGATIVE); NITRITE,URINE NEGATIVE (NEGATIVE); PH,URINE 6.5 (5-9); PROTEIN,URINE NEGATIVE (NEGATIVE)
[2022-01-03 18:47] LABS: BACTERIA,URINE MODERATE /HPF
[2022-01-03 19:37] VITALS: BP 137/80
[2022-01-03] MEDS ORDERED: CEPH500T PO (19:44)
--- NOTE | 2022-01-04 08:26 | Physician Query-Final Dx ---
MARQUIS,01/04/22 0826: Clinic Account Progress/Dx Physician Query: Please give diagnosis Please include # weeks gestation Date of Service Jan 03, 2022 at 17:30 SRINIVASAN DAVIS DO 01/04/22 1049: Clinic Account Progress/Dx DIAGNOSIS: Diagnosis 36 week lower pelvic pain UTI MARQUIS,NovJan 04, 2022 08:26 SRINIVASAN DAVIS DO Jan 04, 2022 10:49
== END 2022-01-03 19:52 | disposition home or self-care (01) ==
LOC: WSo 17:30 → LDRP 17:31 → WSo 19:52
PROVIDERS: ATTEND Obstetrics & Gynecology
DX: O23.43 Unspecified infection of urinary tract in pregnancy, third trimester (principal); Z3A.36 36 weeks gestation of pregnancy
CPT/HCPCS: 81000; 87088; G0463; 99213

== ENCOUNTER 2022-01-12 05:43 | Inpatient (IN) | payer OTHER ==
[~2022-01-12] VITALS: Ht 162.6 cm; Wt 123.7 kg
[2022-01-12] VITALS (43 sets, daily range): BP systolic 108–172; BP diastolic 52–92
[~2022-01-12 05:43] MED LIST changes: +CEPH500T PO
[2022-01-12] MEDS ORDERED: D5 LR IV SOLUTION 1,000 ML IV ONE (06:51)
[2022-01-12 06:55] LABS: BILIRUBIN,URINE NEGATIVE (NEGATIVE); CLARITY,URINE SL CLOUDY; COLOR,URINE YELLOW; GLUCOSE, URINE (UA) TRACE (NEGATIVE); KETONES,URINE NEGATIVE (NEGATIVE); LEUKOCYTE ESTERASE ,URINE 2+ (NEGATIVE); NITRITE,URINE NEGATIVE (NEGATIVE); PROTEIN,URINE NEGATIVE (NEGATIVE)
[2022-01-12] MEDS: D5 LR IV SOLUTION 1,000 ML IV SCH ×2 (06:55→15:25)
[2022-01-12 06:56] LABS: BASOPHILS % (AUTO) 0 % (0-10); EOSINOPHILS # (AUTO) 0.1 10^3/uL (0.0-0.3); EOSINOPHILS % (AUTO) 1 % (0-10); HEMATOCRIT 33 % (35-52); LYMPHOCYTES # (AUTO) 2.6 10^3/uL (1.0-4.0); LYMPHOCYTES % (AUTO) 31 % (12-44); MEAN CORPUSCULAR HEMOGLOBIN 28 pg (25-34); MEAN CORPUSCULAR HGB CONC 33 g/dL (32-36); MEAN CORPUSCULAR VOLUME 85 fL (80-99); MEAN PLATELET VOLUME 9.9 fL (9.0-12.2); MONOCYTES # (AUTO) 0.5 10^3/uL (0.0-1.0); MONOCYTES % (AUTO) 6 % (0-12); NEUTROPHILS # (AUTO) 5.2 10^3/uL (1.8-7.8); NEUTROPHILS % (AUTO) 61 % (42-75); PLATELET COUNT 286 10^3/uL (130-400); WHITE BLOOD COUNT 8.5 10^3/uL (4.3-11.0)
[2022-01-12 07:10] LABS: BACTERIA,URINE TRACE /HPF; YEAST,URINE MODERATE /HPF
[2022-01-12] MEDS ORDERED: OXYTOCIN PRE-MIX DRIP 500 ML IV SCH (08:30)
--- NOTE | 2022-01-12 08:34 | History & Physical-OB ---
OB - Chief Complaint & HPI Date/Time Date of Admission: Date of Admission: Jan 12, 2022 at 05:43 Date seen by a Provider: Jan 12, 2022 Time Seen by a Provider: 08:10 Chief Complaint/History OB-Reason for Admission/Chief: Induction of Labor Hx : 3 Hx Para: 1 Expected Date of Delivery: Jan 27, 2022 Gestational Age in Weeks: 37 Gestational Age in Days: 6 Admission Nurse Assessment Rev: Yes History of Labs A pos Antibody neg RI RPR NR HBsAg NR HIV NR GC neg GBS neg Allergies and Home Medications Allergies Coded Allergies: adhesive tape (Verified Allergy, Intermediate, Rash, 01/03/22) Patient Home Medication List Home Medication List Reviewed: Yes Cephalexin (Cephalexin) 500 Mg Tablet, 500 MG PO QID Prescribed by: DAVID BLACKBURN on 01/03/221943 Docusate Sodium (Dok) 100 Mg Capsule, 100 MG PO BID Prescribed by: SRINIVASAN DAVIS on 07/01/20 0804 Vit W-Ca,Fe,FA(<1 mg) ( Formula) 1 Each Tablet, 1 EACH PO, (Reported) Entered as Reported by: LINDSEY WOO on 06/30/20 0120 OB - History Hx of Present Care: Yes Ultrasounds: Normal mid trimester US Obstetrical Complications: Gestational Hypertension Medical Complications: None Delivery History Adverse Rxn to Tranfusion: No Patient Past Medical History N/A Social History/Family History 2nd Hand Smoke Exposure: No Immunizations Influenza Vaccine Up-to-Date: Yes; Up-to-Date OB - Admission Exam Physical Exam Vitals: Vital Signs 01/12/22 05:59 Temp 36.8 Pulse 112 Resp 18 Pulse Ox 99 O2 Delivery Room Air HEENT: NCAT Heart: Rhythm Normal Lungs: Clear Abdomen: Gravid Extremities: Normal Reflexes: Normal Cervical Dilatation: 3cm Effacement: 75% Station: -1 Membranes: Intact Heart Rate: 130's Accelerations: Accelerations Present Decelerations: No Decelerations Short Term Variability: Present Snf Variability: Average (6-25) Contractions on Admission: 6-10 Minutes Apart Intensity: Mild Labs Laboratory Tests Test 01/12/22 05:50 01/12/22 06:15 Range/Units Urine Color YELLOW Urine Clarity SL CLOUDY Urine pH 6.0 5-9 Urine Specific [place] 1.025 H 1.016-1.022 Urine Protein NEGATIVE NEGATIVE Urine Glucose (UA) TRACE H NEGATIVE Urine Ketones NEGATIVE NEGATIVE Urine Nitrite NEGATIVE NEGATIVE Urine Bilirubin NEGATIVE NEGATIVE Urine Urobilinogen 0.2 < = 1.0 MG/DL Urine Leukocyte Esterase 2+ H NEGATIVE Urine RBC (Auto) NEGATIVE NEGATIVE Urine RBC NONE /HPF Urine WBC 5-10 H /HPF Urine Squamous Epithelial Cells 5-10 /HPF Urine Crystals NONE /LPF Urine Bacteria TRACE /HPF Urine Casts NONE /LPF Urine Mucus NEGATIVE /LPF Urine Yeast MODERATE H /HPF Urine Culture Indicated YES White Blood Count 8.5 4.3-11.0 10^3/uL Red Blood Count 3.89 3.80-5.11 10^6/uL Hemoglobin 11.0 L 11.5-16.0 g/dL Hematocrit 33 L 35-52 % Mean Corpuscular Volume 85 80-99 fL Mean Corpuscular Hemoglobin 28 25-34 pg Mean Corpuscular Hemoglobin Concent 33 32-36 g/dL Red Cell Distribution Width 14.0 10.0-14.5 % Platelet Count 286 130-400 10^3/uL Mean Platelet Volume 9.9 9.0-12.2 fL Immature Granulocyte % (Auto) 1 % Neutrophils (%) (Auto) 61 42-75 % Lymphocytes (%) (Auto) 31 12-44 % Monocytes (%) (Auto) 6 0-12 % Eosinophils (%) (Auto) 1 0-10 % Basophils (%) (Auto) 0 0-10 % Neutrophils # (Auto) 5.2 1.8-7.8 10^3/uL Lymphocytes # (Auto) 2.6 1.0-4.0 10^3/uL Monocytes # (Auto) 0.5 0.0-1.0 10^3/uL Eosinophils # (Auto) 0.1 0.0-0.3 10^3/uL Basophils # (Auto) 0.0 0.0-0.1 10^3/uL Immature Granulocyte # (Auto) 0.1 0.0-0.1 10^3/uL OB - Assessment/Plan/Diagnosis Assessment Assessment: induction of labor Admission Dx 26 yo @ 37.6 GHTN GBS neg Admission Status: Inpatient Order (span 2 midnights) Reason for Inpatient Admission: IOL at term due to GHTN Plan Plan: Induction Induction Method: AROM FENECH,SRINIVASAN S DO Jan 12, 2022 08:34
[2022-01-12] MEDS ORDERED: fentaNYL 2 mcg/ml BUPIVA 0.125 100 ML ONE (12:40)
[2022-01-12] MEDS ORDERED: fentaNYL INJ 100 MCG/2 ML AMP ONE (12:52)
[2022-01-12] MEDS ORDERED: BUPIVACAINE 0.25% 10 ML (SENSORCAINE) VIAL ONE (12:52)
[2022-01-12] MEDS ORDERED: ONDANSETRON 4 MG/2 ML (SDV) Z0FRAN IV PRN (13:30)
[2022-01-12] MEDS ORDERED: NALOXONE 0.4 MG/ML 1 ML (NARCAN) VIAL IV PRN ×2 (13:30→15:30)
[2022-01-12] MEDS ORDERED: diphenhydrAMINE 50 MG/ML INJ (BENADRYL) IV PRN (13:30)
[2022-01-12] MEDS ORDERED: LACTATED RINGERS 1,000 ML IV SCH (13:30)
[2022-01-12] MEDS ORDERED: EPIDURAL (fentaNYL 2 MCG/ML BUPIVA 0.125%)100 ML BAG EPI PRN (13:30)
[2022-01-12] MEDS ORDERED: CATHETER FLUSH 10 ML SYR IV SCH ×2 (14:00→22:00)
[2022-01-12] MEDS ORDERED: LIDOCAINE/EPI 2% 1:200,00 (XYLOCAINE) 10 ML VIAL ONE (14:14)
[2022-01-12] MEDS: OXYTOCIN PRE-MIX DRIP 500 ML IV SCH ×2 (15:29→17:41)
[2022-01-12] MEDS ORDERED: LACTATED RINGERS 1,000 ML IV ONE (15:30)
[2022-01-12] MEDS ORDERED: WITCH HAZEL(TUCKS) 40 EA JAR TOP PRN (15:30)
[2022-01-12] MEDS ORDERED: BENZOCAINE/MENTHOL (DERMOPLAST) 56 ML CAN TP PRN (15:30)
[2022-01-12] MEDS ORDERED: TETANUS,DIPTH,PERTUSS P/F (BOOSTRIX) 0.5 ML VIAL IM ONE (15:30)
[2022-01-12] MEDS ORDERED: MEASLES,MUMPS,RUBELLA 1 EA INJ SQ ONE (15:30)
--- NOTE | 2022-01-12 15:31 | OB Labor & Delivery Record ---
L&D History Date of Service Date of Service: Jan 12, 2022 History Expected Date of Delivery: Jan 27, 2022 Gestational Age in Weeks: 37 Hx : 3 Hx Para: 1 Complications Events: Routine care Operative Indications (Cesarea: N/A-Vaginal Delivery Intrapartal Events: None L&D Stage1 Stage One Onset of Labor - Date: Jan 12, 2022 Monitors and Tracing Monitor Mode: External Heart Rate: 135 Vital Signs VS - Last 72 Hours, by Label 01/12/22 01/12/22 01/12/22 01/12/22 05:59 08:10 08:30 08:45 Temp 36.8 36.7 Pulse 112 111 103 106 Resp 18 18 18 18 B/P (MAP) 124/60 (81) 134/62 (86) 125/76 (92) Pulse Ox 99 O2 Delivery Room Air 01/12/22 01/12/22 01/12/22 01/12/22 09:00 09:15 09:30 09:45 Temp 36.9 Pulse 82 75 95 90 Resp 18 18 18 18 B/P (MAP) 123/63 (83) 116/55 (75) 119/66 (83) 134/70 (91) 01/12/22 01/12/22 01/12/22 01/12/22 10:00 10:15 10:30 10:45 Pulse 75 86 72 80 Resp 18 18 18 18 B/P (MAP) 135/70 (91) 134/71 (92) 136/77 (96) 148/72 (97) 01/12/22 01/12/22 01/12/22 01/12/22 11:00 11:15 11:30 11:45 Pulse 81 83 80 Resp 18 18 18 B/P (MAP) 132/73 (92) 115/61 (79) 139/72 (94) 01/12/22 12:00 Pulse 78 Resp 18 B/P (MAP) 133/62 (85) Rupture of Membranes Amniotic Membrane Rupture Time: 0803 Progress/Notes Patient admitted for IOL due to GHTN. AROM performed and pitocin augmentation started. Patient progressed to complete and 0 station after epidural received. L&D Stage2 Stage Two Stage II Date: Jan 12, 2022 Monitors and Tracing Monitor Mode: External Heart Rate: 135 Drain Layer Variability: Average (6-10) Short Term Variability: Present Position: Right Occiput Anterior Presentation: Vertex Cord Descript/Complications Cord Vessel Description: 3 Vessels Delivery Type Infant Delivery Method: Spontaneous Vaginal Anterior Shoulder: Right Episiotomy/Perineal Laceration Laceraction(s)/Extensions: Yes Episiotomy Description: Perineal Extension/lac, 2nd degree, 3rd degree Degree (describe repair) 2nd degree perineal laceration repaired using 3-0 and 2-0 vicryl suture in usual fashion. Condition of Delivery 1 minute Comment: 9 5 minute Comment: 9 Condition of Condition of Infant: Living Exam: No Observed Abnormalities Resuscitation Resuscitation: N/A - Spontaneous Resp L&D Stage3 Stage Three Stage III Date: Jan 12, 2022 Pictocin Pitocin Administration mu/min: 8 Pitocin ml/hr: 8 Pitocin Administration Comment: 30 mu wide open after delivery of placetna Placenta Delivery Placenta Delivery: Spontaneous Delivery Summary Summary Estimated blood loss (mL): 400 Attending at delivery: Srinivasan Davis DO Condition of Delivery Examined: Cervix Examined, Uterus Explored Post Hemorrhage: No Condition of Mother stable Condition of Infant (s) stable SRINIVASAN DAVIS DO Jan 12, 2022 15:31
--- NOTE | 2022-01-12 15:32 | Discharge Inst-Women's Service ---
Discharge Inst-Women's Serv Depart Medication/Instructions New, Converted or Re-Newed RX: Transmitted to Pharmacy Final Diagnosis PPD 1 NVD Problems Reviewed?: Yes Consults/Follow Up Additional Follow Up: Yes Orders/Referrals Dr. Davis in 6 weeks Activity Activity: Activity as Tolerated Driving Instructions: No Driving for 1 Week NO SMOKING: NO SMOKING Nothing Inside Vagina: No Douching, No [place], No Tampons Diet Discharge Diet: No Restrictions Symptoms to Report to : Bleeding Excessive, Pain Increased, Fever Over 101 Degrees F, Vaginal Bleeding Increase, Questions/Concerns For Any Problems or Questions: Contact Your Physician SRINIVASAN DAVIS DO Jan 12, 2022 15:32
[2022-01-12] MEDS ORDERED: ACHD5005 PO (15:34)
[2022-01-12] MEDS ORDERED: DOCU100C37 PO (15:34)
[2022-01-12] MEDS ORDERED: IBUP-844 PO (15:34)
[2022-01-12] MEDS ORDERED: BENZ78AE5 TP (15:34)
[2022-01-12] MEDS ORDERED: FERR325T24 PO (15:34)
[2022-01-12] MEDS: IBUPROFEN 600 MG (MOTRIN) TAB PO SCH ×2 (17:30→23:27)
[2022-01-12] MEDS: DOCUSATE SODIUM 100 MG (COLACE) CAP PO SCH (23:27)
[2022-01-13 03:01] VITALS: BP 133/66
[2022-01-13] MEDS: IBUPROFEN 600 MG (MOTRIN) TAB PO SCH ×3 (03:10→15:02)
[2022-01-13] MEDS: HYDROcodone/APAP 5 MG/325 MG (LORTAB) TAB PO PRN ×2 (03:11→08:58)
[2022-01-13] MEDS ORDERED: PRENATAL VITAMIN 1 EA TAB PO SCH (07:00)
[2022-01-13] MEDS: DOCUSATE SODIUM 100 MG (COLACE) CAP PO SCH (07:36)
[2022-01-13 07:50] VITALS: BP 123/72
--- NOTE | 2022-01-13 08:05 | Postpartum Progress Note ---
Note Note Day # 1 Subjective: Patient is without complaints. Ambulating, voiding. Tolerating a regular diet without nausea or vomiting. Normal lochia. Pain is well controlled with oral pain medications. Objective: Physical Exam: General - Alert and oriented, no apparent distress Abdomen - Soft, appropriately tender to palpation, non-distended, fundus firm at umbilicus Extremities - no edema, negative Kelsie's bilaterally Assessment: Post- day # 1, status post vaginal delivery. Recovering well, hemodynamically stable Acute blood loss anemia Plan: Routine care. Encourage breast feeding. Encourage ambulation. Ferrous sulfate supplementation. Plan for discharge today Vitals - Labs Vital Signs - I&O Vital Signs Date Time Temp Pulse Resp B/P (MAP) Pulse Ox O2 Delivery O2 Flow Rate FiO2 01/13/22 07:50 66 18 123/72 (89) Room Air 01/13/22 03:01 36.6 64 18 133/66 (88) Room Air 01/12/22 20:10 36.9 72 18 126/62 (83) Room Air 01/12/22 16:31 67 18 119/58 (78) Room Air 01/12/22 16:16 75 18 114/54 (74) Room Air 01/12/22 16:01 64 18 119/57 (77) Room Air 01/12/22 15:46 83 18 121/58 (79) Room Air 01/12/22 15:31 37.3 85 18 119/66 (83) Room Air 01/12/22 15:16 88 18 108/60 (76) Room Air 01/12/22 15:01 37.2 98 18 131/52 (78) Room Air 01/12/22 14:47 114 18 172/80 (110) Room Air 01/12/22 14:15 36.3 90 18 135/64 (87) 100 Non Rebreather 10.00 01/12/22 14:08 99 18 142/65 (90) 100 Room Air 01/12/22 14:03 80 18 142/65 (90) 100 Room Air 01/12/22 13:57 01/12/22 13:53 88 18 133/71 (91) 99 Room Air 01/12/22 13:48 92 18 137/68 (91) 100 Room Air 01/12/22 13:43 98 18 139/72 (94) 99 Room Air 01/12/22 13:38 82 18 162/68 (99) 99 Room Air 01/12/22 13:33 90 18 157/92 (113) 100 Room Air 01/12/22 13:28 88 18 144/67 (92) 100 Room Air 01/12/22 13:26 01/12/22 13:23 96 18 134/65 (88) 100 Room Air 01/12/22 13:15 88 18 154/79 (104) 01/12/22 13:13 72 18 141/82 (101) 100 Room Air 01/12/22 13:08 72 18 140/81 (100) 100 Room Air 01/12/22 13:03 71 18 163/87 (112) 100 Room Air 01/12/22 13:00 68 18 144/73 (96) 01/12/22 12:45 81 18 150/83 (105) 01/12/22 12:30 69 18 123/68 (86) 01/12/22 12:15 36.4 70 18 110/69 (83) 01/12/22 12:00 78 18 133/62 (85) 01/12/22 11:45 80 18 139/72 (94) 01/12/22 11:30 01/12/22 11:15 83 18 115/61 (79) 01/12/22 11:00 81 18 132/73 (92) 01/12/22 10:45 80 18 148/72 (97) 01/12/22 10:30 72 18 136/77 (96) 01/12/22 10:15 86 18 134/71 (92) 01/12/22 10:00 75 18 135/70 (91) 01/12/22 09:45 90 18 134/70 (91) 01/12/22 09:30 36.9 95 18 119/66 (83) 01/12/22 09:15 75 18 116/55 (75) 01/12/22 09:00 82 18 123/63 (83) 01/12/22 08:45 106 18 125/76 (92) 01/12/22 08:30 36.7 103 18 134/62 (86) 01/12/22 08:10 111 18 124/60 (81) I & O 01/13/22 07:00 Intake Total 3000 ml Balance 3000 ml Labs Laboratory Tests 01/13/22 00:00: MARCIE MEJÍA APRN Jan 13, 2022 08:05
[2022-01-13] MEDS ORDERED: FERROUS SULF 325 MG (IRON) TAB PO SCH (09:00)
[2022-01-13 09:04] LABS: BASOPHILS % (AUTO) 0 % (0-10); EOSINOPHILS # (AUTO) 0.2 10^3/uL (0.0-0.3); EOSINOPHILS % (AUTO) 2 % (0-10); HEMATOCRIT 29 % (35-52); HEMOGLOBIN 9.3 g/dL (11.5-16.0); LYMPHOCYTES # (AUTO) 2.7 10^3/uL (1.0-4.0); LYMPHOCYTES % (AUTO) 30 % (12-44); MEAN CORPUSCULAR HEMOGLOBIN 28 pg (25-34); MEAN CORPUSCULAR HGB CONC 32 g/dL (32-36); MEAN CORPUSCULAR VOLUME 87 fL (80-99); MEAN PLATELET VOLUME 9.6 fL (9.0-12.2); MONOCYTES # (AUTO) 0.5 10^3/uL (0.0-1.0); MONOCYTES % (AUTO) 6 % (0-12); NEUTROPHILS # (AUTO) 5.6 10^3/uL (1.8-7.8); NEUTROPHILS % (AUTO) 62 % (42-75); PLATELET COUNT 218 10^3/uL (130-400); WHITE BLOOD COUNT 9.1 10^3/uL (4.3-11.0)
--- NOTE | 2022-01-13 10:54 | Anesthesia-Regional Post-Op ---
Regional Patient Condition Mental Status: Alert, Oriented x3 Circulation: Same as Pre-Op Headache: Absent Sensation: Full Recovery Motor Block: Absent Post Op Complications Complications None Follow Up Care/Instructions Patient Instructions None needed. Anesthesia/Patient Condition Patient is doing well, no complaints, stable vital signs, no apparent adverse anesthesia problems. No complications reported per nursing. D/C home per [facility] Criteria: ALEKSEY Laughlin CRNA Jan 13, 2022 10:54
[2022-01-13 12:30] VITALS: BP 105/47
[2022-01-13 17:15] VITALS: BP 115/56
[2022-01-14] MEDS ORDERED: ACHD5005 PO ×2 (08:21→08:22)
== END 2022-01-13 17:15 | disposition home or self-care (01) | DRG 806 ==
LOC: LDRP 05:43
PROVIDERS: ADMIT Obstetrics & Gynecology; ATTEND Obstetrics & Gynecology
PROC: 10E0XZZ Delivery of Products of Conception, External Approach (ICD-10-PCS; principal; 2022-01-12)
PROC: 0KQM0ZZ Repair Perineum Muscle, Open Approach (ICD-10-PCS; 2022-01-12)
PROC: 10907ZC Drainage of Amniotic Fluid, Therapeutic from Products of Conception, Via Natural or Artificial Opening (ICD-10-PCS; 2022-01-12)
PROC: 8E0ZXY6 Isolation (ICD-10-PCS; 2022-01-12)
DX: O13.4 Gestational [pregnancy-induced] hypertension without significant proteinuria, complicating childbirth (principal); D62 Acute posthemorrhagic anemia; Z37.0 Single live birth; O70.1 Second degree perineal laceration during delivery; O90.81 Anemia of the puerperium; Z3A.37 37 weeks gestation of pregnancy
CPT/HCPCS: 36415; 81000; 85025; 86850; 86900; 86901; 87088